=== PATIENT | female | born 1930 | race Caucasian/White ===

== ENCOUNTER 2016-11-12 10:33 | Outpatient (CLI) | payer MEDICARE, OTHER | END 2016-11-12 10:34 | disposition home or self-care (01) | DX: J84.10 Pulmonary fibrosis, unspecified (principal) ==

== ENCOUNTER 2016-12-04 11:16 | Outpatient (CLI) | payer MEDICARE, OTHER | END 2016-12-04 11:17 | disposition critical access hospital (66) | DX: R40.0 Somnolence (principal) | CPT/HCPCS: A0425; A0427 ==

== ENCOUNTER 2016-12-04 11:40 | Inpatient (IN) | payer MEDICARE, OTHER ==
[2016-12-04] MEDS ORDERED: SODIUM CHLORIDE 0.9% 500 ML IV ONE (12:47)
[2016-12-04] MEDS ORDERED: AZITHROMYCIN INJ 500 MG in SODIUM CHLORIDE 0.9% 250 ML IV STA (13:57)
[2016-12-04] MEDS ORDERED: cefTRIAXone 1 GM in SODIUM CHLORIDE 0.9% MINIBAG 100 ML IV STA (13:57)
[2016-12-04] MEDS ORDERED: cefTRIAXone 1 GM VIAL ONE (14:08)
[2016-12-04] MEDS ORDERED: IPRATROPIUM/ALBUTEROL 3 ML NEB INH STA (14:32)
[2016-12-04] MEDS ORDERED: IPRATROPIUM/ALBUTEROL 3 ML NEB INH ONE (14:50)
[2016-12-04] MEDS ORDERED: ONDANSETRON 4 MG/2 ML VIAL IVP PRN (15:14)
[2016-12-04] MEDS ORDERED: SODIUM CHLORIDE FLUSH 0.9% 10 ML SYRINGE IVP PRN (15:14)
[2016-12-04] MEDS ORDERED: FUROSEMIDE 40 MG/4 ML VIAL IVP ONE (16:45)
[2016-12-04] MEDS ORDERED: POTASSIUM CHLORIDE 20 MEQ TABLET PO ONE (17:00)
[2016-12-04] MEDS: SODIUM CHLORIDE FLUSH 0.9% 10 ML SYRINGE IVP SCH (22:20)
[2016-12-05] MEDS: SODIUM CHLORIDE FLUSH 0.9% 10 ML SYRINGE IVP SCH ×3 (06:46→21:16)
[2016-12-05] MEDS: POLYETHYLENE GLYCOL 3350 17 GM PACKET PO SCH (09:28)
[2016-12-05] MEDS: ENOXAPARIN 40 MG/0.4 ML SYRINGE SUBQ SCH (09:32)
[2016-12-05] MEDS: QUEtiapine 25 MG TABLET PO SCH (15:48)
[2016-12-05] MEDS: DOCUSATE SODIUM 250 MG CAPSULE PO SCH (17:51)
[2016-12-05] MEDS: AZITHROMYCIN 250 MG TABLET PO SCH (17:51)
[2016-12-05] MEDS: SENNA 8.6 MG TABLET PO SCH (21:16)
[2016-12-05] MEDS ORDERED: QUEtiapine 25 MG TABLET PO SCH (22:00)
[2016-12-06] MEDS: ACETAMINOPHEN 325 MG TABLET PO PRN ×2 (00:14→06:23)
[2016-12-06] MEDS: SODIUM CHLORIDE FLUSH 0.9% 10 ML SYRINGE IVP SCH (06:08)
[2016-12-06] MEDS: AZITHROMYCIN 250 MG TABLET PO SCH (10:01)
[2016-12-06] MEDS: DOCUSATE SODIUM 250 MG CAPSULE PO SCH (10:02)
[2016-12-06] MEDS: QUEtiapine 25 MG TABLET PO SCH (10:04)
[2016-12-06] MEDS: SENNA 8.6 MG TABLET PO SCH (10:04)
[2016-12-06] MEDS: POLYETHYLENE GLYCOL 3350 17 GM PACKET PO SCH (10:07)
[2016-12-06] MEDS: ENOXAPARIN 40 MG/0.4 ML SYRINGE SUBQ SCH (10:10)
== END 2016-12-06 15:34 | disposition home or self-care (01) | DRG 884 ==
DX: R40.4 Transient alteration of awareness (principal); R40.0 Somnolence; J18.1 Lobar pneumonia, unspecified organism; R60.0 Localized edema; J18.9 Pneumonia, unspecified organism; E78.00 Pure hypercholesterolemia, unspecified; R32 Unspecified urinary incontinence; J84.9 Interstitial pulmonary disease, unspecified; F11.20 Opioid dependence, uncomplicated; R06.02 Shortness of breath; T43.595A Adverse effect of other antipsychotics and neuroleptics, initial encounter; M40.00 Postural kyphosis, site unspecified; G89.29 Other chronic pain; M54.9 Dorsalgia, unspecified; E03.9 Hypothyroidism, unspecified; K21.9 Gastro-esophageal reflux disease without esophagitis; E78.5 Hyperlipidemia, unspecified; M81.0 Age-related osteoporosis without current pathological fracture; F41.9 Anxiety disorder, unspecified; Z79.899 Other long term (current) drug therapy; Z87.891 Personal history of nicotine dependence; Y92.009 Unspecified place in unspecified non-institutional (private) residence as the place of occurrence of the external cause

== ENCOUNTER 2016-12-30 11:31 | Inpatient (IN) | payer MEDICARE, OTHER ==
[2016-12-30] MEDS ORDERED: ACETAMINOPHEN 325 MG TABLET PO PRN (14:51)
[2016-12-30] MEDS ORDERED: oxyCODONE 5 MG TABLET PO PRN (14:51)
[2016-12-30] MEDS ORDERED: BENZONATATE 100 MG CAPSULE PO PRN (14:55)
[2016-12-30] MEDS ORDERED: SODIUM CHLORIDE 0.9% 1,000 ML IV SCH (16:30)
[2016-12-30] MEDS: PIPERACILLIN/TAZOBACTAM 3.375 GM in SODIUM CHLORIDE 0.9% MINIBAG 100 ML IV SCH (16:38)
[2016-12-30] MEDS: SODIUM CHLORIDE FLUSH 0.9% 10 ML SYRINGE IVP SCH (16:39)
[2016-12-30] MEDS: QUEtiapine 25 MG TABLET PO SCH (20:23)
[2016-12-30] MEDS: MIRTAZAPINE 15 MG TABLET PO SCH (20:24)
[2016-12-31] MEDS: PIPERACILLIN/TAZOBACTAM 3.375 GM in SODIUM CHLORIDE 0.9% MINIBAG 100 ML IV SCH ×4 (00:06→18:23)
[2016-12-31] MEDS: LEVOTHYROXINE 88 MCG TABLET PO SCH (06:13)
[2016-12-31] MEDS: SODIUM CHLORIDE FLUSH 0.9% 10 ML SYRINGE IVP SCH ×3 (06:13→20:52)
[2016-12-31] MEDS: MAGNESIUM OXIDE 400 MG TABLET PO SCH (08:32)
[2016-12-31] MEDS: POTASSIUM CHLORIDE 10 MEQ CAPSULE PO SCH (08:32)
[2016-12-31] MEDS: BUPRENORPHINE HCL PO SCH ×2 (08:33→20:52)
[2016-12-31] MEDS: NALOXONE HCL PO SCH ×2 (08:33→20:52)
[2016-12-31] MEDS: POLYETHYLENE GLYCOL 3350 17 GM PACKET PO SCH (09:05)
[2016-12-31] MEDS: QUEtiapine 25 MG TABLET PO SCH ×3 (10:24→14:29)
[2016-12-31] MEDS: MIRTAZAPINE 15 MG TABLET PO SCH (20:52)
[2017-01-01] MEDS: PIPERACILLIN/TAZOBACTAM 3.375 GM in SODIUM CHLORIDE 0.9% MINIBAG 100 ML IV SCH ×4 (00:08→18:23)
[2017-01-01] MEDS: SODIUM CHLORIDE FLUSH 0.9% 10 ML SYRINGE IVP PRN ×5 (00:14→15:48)
[2017-01-01] MEDS: LEVOTHYROXINE 88 MCG TABLET PO SCH (05:59)
[2017-01-01] MEDS: SODIUM CHLORIDE FLUSH 0.9% 10 ML SYRINGE IVP SCH ×3 (05:59→22:32)
[2017-01-01] MEDS ORDERED: MAGNESIUM HYDROXIDE 2,400 MG/30 ML UDC PO ONE (07:38)
[2017-01-01] MEDS: DOCUSATE SODIUM 250 MG CAPSULE PO SCH (08:20)
[2017-01-01] MEDS: POLYETHYLENE GLYCOL 3350 17 GM PACKET PO SCH (08:20)
[2017-01-01] MEDS: MAGNESIUM OXIDE 400 MG TABLET PO SCH (08:21)
[2017-01-01] MEDS: SENNA 8.6 MG TABLET PO SCH (08:21)
[2017-01-01] MEDS: BUPRENORPHINE HCL PO SCH (09:10)
[2017-01-01] MEDS: NALOXONE HCL PO SCH (09:10)
[2017-01-01] MEDS: POTASSIUM CHLORIDE 10 MEQ CAPSULE PO SCH (09:13)
[2017-01-01] MEDS: QUEtiapine 25 MG TABLET PO SCH ×3 (09:13→20:33)
[2017-01-01] MEDS ORDERED: BISACODYL 10 MG SUPP PR ONE (11:00)
[2017-01-01] MEDS ORDERED: MIN OIL/DIMETHICON/COCONUT OIL 92 GM TUBE TOP ONE (13:15)
[2017-01-01] MEDS ORDERED: SODIUM CHLORIDE 0.9% 250 ML IV ONE (15:49)
[2017-01-01] MEDS: MIRTAZAPINE 15 MG TABLET PO SCH (20:33)
[2017-01-01] MEDS: BUPRENORPHINE HCL TOP SCH (20:33)
[2017-01-01] MEDS: NALOXONE HCL TOP SCH (20:33)
[2017-01-02] MEDS: PIPERACILLIN/TAZOBACTAM 3.375 GM in SODIUM CHLORIDE 0.9% MINIBAG 100 ML IV SCH ×2 (00:15→06:19)
[2017-01-02] MEDS: SODIUM CHLORIDE FLUSH 0.9% 10 ML SYRINGE IVP PRN (00:18)
[2017-01-02] MEDS: LEVOTHYROXINE 88 MCG TABLET PO SCH (06:19)
[2017-01-02] MEDS: SODIUM CHLORIDE FLUSH 0.9% 10 ML SYRINGE IVP SCH (06:19)
[2017-01-02] MEDS: SENNA 8.6 MG TABLET PO SCH (08:32)
[2017-01-02] MEDS: POLYETHYLENE GLYCOL 3350 17 GM PACKET PO SCH (08:32)
[2017-01-02] MEDS: DOCUSATE SODIUM 250 MG CAPSULE PO SCH (08:32)
[2017-01-02] MEDS: BUPRENORPHINE HCL TOP SCH (08:38)
[2017-01-02] MEDS: MAGNESIUM OXIDE 400 MG TABLET PO SCH (08:38)
[2017-01-02] MEDS: NALOXONE HCL TOP SCH (08:38)
[2017-01-02] MEDS: POTASSIUM CHLORIDE 10 MEQ CAPSULE PO SCH (08:39)
[2017-01-02] MEDS: QUEtiapine 25 MG TABLET PO SCH (11:06)
== END 2017-01-02 12:54 | disposition home or self-care (01) | DRG 196 ==
DX: J84.9 Interstitial pulmonary disease, unspecified (principal); J18.1 Lobar pneumonia, unspecified organism; I50.9 Heart failure, unspecified; E78.00 Pure hypercholesterolemia, unspecified; F11.20 Opioid dependence, uncomplicated; R32 Unspecified urinary incontinence; J47.9 Bronchiectasis, uncomplicated; G89.29 Other chronic pain; R41.3 Other amnesia; Z87.01 Personal history of pneumonia (recurrent); M54.9 Dorsalgia, unspecified; K21.9 Gastro-esophageal reflux disease without esophagitis; K44.9 Diaphragmatic hernia without obstruction or gangrene; M40.209 Unspecified kyphosis, site unspecified; E78.5 Hyperlipidemia, unspecified; E03.9 Hypothyroidism, unspecified; M81.0 Age-related osteoporosis without current pathological fracture; K08.9 Disorder of teeth and supporting structures, unspecified; K05.10 Chronic gingivitis, plaque induced; Z79.891 Long term (current) use of opiate analgesic; Z79.51 Long term (current) use of inhaled steroids; Z79.899 Other long term (current) drug therapy; Z87.891 Personal history of nicotine dependence

== ENCOUNTER 2018-02-17 08:39 | Outpatient (CLI) | payer MEDICARE, OTHER | END 2018-02-17 08:40 | disposition critical access hospital (66) | LOC: EMS 08:39 | PROVIDERS: ATTEND Surgery | DX: R53.1 Weakness (principal); R06.00 Dyspnea, unspecified; R05 Cough | CPT/HCPCS: A0425; A0427 ==

== ENCOUNTER 2018-02-17 09:06 | Inpatient (IN) | payer MEDICARE, OTHER ==
[2018-02-17 09:52] LABS: BASOPHILS % (AUTO) 0.3 %; EOSINOPHILS # (AUTO) 0.1 10^3/uL (0.0-0.7); EOSINOPHILS % (AUTO) 1.4 %; HGB - HEMOGLOBIN 10.9 g/dL (12.0-16.0); LYMPHOCYTES % (AUTO) 9.6 %; MEAN CORPUSCULAR HEMOGLOBIN 29.9 pg (27.0-31.0); MEAN CORPUSCULAR HGB CONC 33.4 g/dL (32.0-36.0); MEAN CORPUSCULAR VOLUME 89.6 fL (81.0-99.0); MEAN PLATELET VOLUME 7.1 fL (7.9-10.8); MONOCYTES # (AUTO) 0.7 10^3/uL (0.0-1.0); MONOCYTES % (AUTO) 6.6 %; NEUTROPHILS # (AUTO) 8.5 10^3/uL (1.5-6.6); NEUTROPHILS % (AUTO) 82.1 %; PLT - PLATELET COUNT 224 10^3/uL (130-450); RED BLOOD COUNT 3.65 10^6/uL (4.20-5.40); RED CELL DISTRIBUTION WIDTH 12.9 % (12.0-15.0); WHITE BLOOD COUNT 10.4 x10^3/uL (4.8-10.8)
[2018-02-17 09:59] LABS: CALCIUM 8.8 mg/dL (8.5-10.3); CREATININE 1.1 mg/dL (0.4-1.0)
--- NOTE | 2018-02-17 10:24 | ED Physician Documentation ---
History of Present Illness - Stated complaint Stated Complaint: WEAKNESS - Chief complaint Chief Complaint: Resp - Additonal information Additional information: hx from pt 88 female from [facility] sent for SOA and hypoxia denies fever denies pain has leg swelling Review of Systems Constitutional: denies: Fever, Chills Cardiac: denies: Chest pain / pressure, Palpitations Respiratory: reports: Dyspnea, Cough GI: denies: Abdominal Pain, Nausea, Vomiting Musculoskeletal: reports: Extremity swelling Endocrine: denies: Easy bruising / bleeding Immunocompromised: denies: Immunocompromised PD PAST MEDICAL HISTORY - Past Medical History Cardiovascular: Congestive heart failure, High cholesterol Respiratory: Shortness of breath Endocrine/Autoimmune: HyPOthyroidism GI: GERD : Incontinence Psych: Anxiety, Other Musculoskeletal: Chronic back pain - Past Surgical History Past Surgical History: No - Present Medications Home Medications: Ambulatory Orders Medication Instructions Recorded Confirmed Lovastatin 20 mg PO QPM 02/23/13 02/17/18 Vitamin B Complex [B50 Balanced] 1 cap PO DAILYWM 02/23/13 02/17/18 Buprenorphine HCl/Naloxone HCl 1 film SL Q12H 12/04/16 02/17/18 [Suboxone 8 mg-2 mg Sl Film] Furosemide [Lasix] 40 mg PO 0800,1200 12/04/16 02/17/18 Mirtazapine 15 mg PO QPM 12/04/16 02/17/18 Potassium Chloride 10 meq PO DAILYWM 12/05/16 02/17/18 Cholecalciferol (Vitamin D3) 2,000 units PO DAILY 12/30/16 02/17/18 [Vitamin D3] Furosemide [Lasix] 20 mg PO 1600 12/30/16 02/17/18 QUEtiapine [SEROquel] 12.5 mg PO QPM 12/30/16 02/17/18 Quetiapine Fumarate 25 mg PO 1000,1400 12/30/16 02/17/18 Cyanocobalamin (Vitamin B-12) 1,000 mcg PO DAILY 02/17/18 02/17/18 [Vitamin B-12] Docusate Sodium 100 mg PO TID 02/17/18 02/17/18 Melatonin 5 mg PO QPM 02/17/18 02/17/18 Multivitamin [Theragran] 1 tab PO DAILY 02/17/18 02/17/18 - Allergies Allergies/Adverse Reactions: Allergies Allergy/AdvReac Type Severity Reaction Status Date / Time amoxicillin [Amoxicillin] AdvReac Intermediate Diarrhea Verified 12/30/16 17:12 - Social History Does the pt smoke?: No Smoking Status: Never smoker Does the pt drink ETOH?: No Does the pt have substance abuse?: No - Immunizations Immunizations are current?: No Immunizations: TDAP >10years/unknown - POLST Patient has POLST: No PD ED PE NORMAL - Vitals Vital signs reviewed: Yes - Neck Neck: Supple, no meningeal sign - Cardiac Cardiac: RRR - Respiratory Respiratory: Other (rales antelmo) - Abdomen Abdomen: Soft, Non tender - Extremities Extremities: Other (marked antelmo edema) - Neuro Neuro: Alert and oriented X 3 Results - Vitals Vitals: Vital Signs - 24 hr 02/17/18 02/17/18 02/17/18 09:13 10:47 12:38 Temperature 36.6 C Heart Rate 86 53 L 53 L Respiratory 18 16 19 Rate Blood Pressure 122/90 H 137/53 H 125/51 L O2 Saturation 95 100 94 02/17/18 14:48 Temperature 36.4 C L Heart Rate 70 Respiratory 16 Rate Blood Pressure 125/48 L O2 Saturation 97 Oxygen O2 Source Room air Oxygen Flow Rate 2 - EKG (time done) 0944 Rate: Rate (enter#) Rhythm: NSR [place]: LAD Intervals: Normal ND. No: Prolonged QT Ischemia: Non specific changes (inv T III AVF and flat precordial leads) - Labs Labs: Laboratory Tests 02/17/18 02/17/18 02/17/18 09:42 09:42 09:42 WBC 10.4 RBC 3.65 L Hgb 10.9 L Hct 32.7 L MCV 89.6 MCH 29.9 MCHC 33.4 RDW 12.9 Plt Count 224 MPV 7.1 L Neut # 8.5 H Lymph # 1.0 L [place] # 0.7 Eos # 0.1 Baso # 0.0 Absolute Nucleated RBC 0.00 Nucleated RBC % 0.0 Sodium 138 Potassium 3.3 L Chloride 94 L Carbon Dioxide 35 H Anion Gap 9.0 BUN 10 Creatinine 1.1 H Estimated GFR (MDRD) 47 L Glucose 124 H Lactic Acid Calcium 8.8 Troponin I < 0.04 B-Natriuretic Peptide 02/17/18 02/17/18 09:42 12:29 WBC RBC Hgb Hct MCV MCH MCHC RDW Plt Count MPV Neut # Lymph # [place] # Eos # Baso # Absolute Nucleated RBC Nucleated RBC % Sodium Potassium Chloride Carbon Dioxide Anion Gap BUN Creatinine Estimated GFR (MDRD) Glucose Lactic Acid 1.5 Calcium Troponin I B-Natriuretic Peptide 201 H - Rads (name of study) CXR Radiology: See rad report (low lung volumes R basilar airspace dz atelectasis vs pna) PD MEDICAL DECISION MAKING - ED course ED course: hx CHF and edematous but neg BNP and no sig CHF on CXR does have R base infiltrate given all to amox and other home meds and coming from SNF, chose levaquin - will still need to have QT monitored sats low - lives at home - usually uses O2 NC BP low too (SBP 85 when i was in room with family) anemia not new will admit paged hospitalist at 1315 spoke to hospitalist at 1500 pt and family updated Departure - Departure Disposition: 66 [facility] DC/Xfer Clinical Impression: Hypoxia Pneumonia Qualifiers: Pneumonia type: due to unspecified organism Laterality: right Lung location: lower lobe of lung Qualified Code(s): J18.1 - Lobar pneumonia, unspecified organism Condition: Fair Discharge Date/Time: 02/17/18 16:00
--- NOTE | 2018-02-17 10:38 | XRAY Report ---
EXAM: CHEST RADIOGRAPHY EXAM DATE: 02/17/2018 10:12 AM. CLINICAL HISTORY: Cough. Short of breath. COMPARISON: 01/07/17. TECHNIQUE: 2 views. FINDINGS: Lungs/Pleura: The lungs are hypoventilated. There is again elevation of the right hemidiaphragm with some streaky opacities seen at the bases favoring atelectasis. No new pulmonary opacity is suggested. There is no pneumothorax or effusion. Mediastinum: Heart and mediastinal contours are unremarkable. Other: None. IMPRESSION: Low lung volumes with elevated right hemidiaphragm and right basilar airspace disease fav oring chronic atelectasis, unchanged. No new findings otherwise. [facility] Referring Provider Line: [phone] SITE ID: [id number]
--- NOTE | 2018-02-17 10:38 | XRAY Preliminary Report ---
Exam: XR CHEST 2 VIEW X-RAY IMPRESSION: Low lung volumes with elevated right hemidiaphragm and right basilar airspace disease fav oring chronic atelectasis, unchanged. No new findings otherwise. [facility] SITE ID: [id number]
[2018-02-17] MEDS ORDERED: levoFLOXacin 500 MG/100 ML 500 MG/100 ML BAG IV STA (10:51)
[2018-02-17] MEDS ORDERED: SODIUM CHLORIDE FLUSH 0.9% 10 ML SYRINGE IVP PRN (15:16)
[2018-02-17] MEDS ORDERED: SODIUM CHLORIDE 0.9% 1,000 ML IV SCH ×2 (16:00→16:30)
[2018-02-17] MEDS ORDERED: ZINC OXIDE 20% OINT 28.35 GM TUBE TOP PRN (16:42)
--- NOTE | 2018-02-17 17:05 | HISTORY & PHYSICAL EXAMINATION ---
Chief Complaint - Chief Complaint Chief Complaint: generalized weakness and difficult standing up History of Present Illness - Admitted From Admitted From:: ER - History Obtained From History obtained from: pt - History of Present Illness HPI Comment/Other: Ms. Webster is a 88-yrs-old female with a PMH significant for CHF, high cholesterol, shortness of breath, GERD, incontinence, anxiety, chronic back pain , who present ER for complaints of difficult to stand up and generalized weakness. Pt report she had cough with sputum for over a week. She state she swallowed all sputum, so she did not know the sputum color. She denies fever, chill, diaphoresis, or night sweating. Pt report today morning she just can not stand up. she report she usually stand up with her caregiver's help to walk with a walker but she just can not do it today. She feel very weakness today. She denies chest pain.CXR reveals chronic without significant acute finding. Dr. Rapp report pt does have right base infiltrate. Pt is afebrile. Pt report she used O2 tank in home, however, pt's O2 sats is 97% on room air. Lab test reveals slight low potassium and slight elevated BNP. History - Past Medical History Cardiovascular: reports: Congestive heart failure, High cholesterol Respiratory: reports: Shortness of breath Endocrine/Autoimmune: reports: HyPOthyroidism GI: reports: GERD : reports: Incontinence Psych: reports: Anxiety, Other Musculoskeletal: reports: Chronic back pain MRSA Hx?: No - Past Surgical History HEENT: reports: Tonsil/Adenoidectomy - POLST Patient has POLST: No Meds/Allgy - Home Medications Home Medications: Ambulatory Orders Medication Instructions Recorded Confirmed Lovastatin 20 mg PO QPM 02/23/13 02/17/18 Vitamin B Complex [B50 Balanced] 1 cap PO DAILYWM 02/23/13 02/17/18 Buprenorphine HCl/Naloxone HCl 1 film SL Q12H 12/04/16 02/17/18 [Suboxone 8 mg-2 mg Sl Film] Furosemide [Lasix] 40 mg PO 0800,1200 12/04/16 02/17/18 Mirtazapine 15 mg PO QPM 12/04/16 02/17/18 Potassium Chloride 10 meq PO DAILYWM 12/05/16 02/17/18 Cholecalciferol (Vitamin D3) 2,000 units PO DAILY 12/30/16 02/17/18 [Vitamin D3] Furosemide [Lasix] 20 mg PO 1600 12/30/16 02/17/18 QUEtiapine [SEROquel] 12.5 mg PO QPM 12/30/16 02/17/18 Quetiapine Fumarate 25 mg PO 1000,1400 12/30/16 02/17/18 Cyanocobalamin (Vitamin B-12) 1,000 mcg PO DAILY 02/17/18 02/17/18 [Vitamin B-12] Docusate Sodium 100 mg PO TID 02/17/18 02/17/18 Melatonin 5 mg PO QPM 02/17/18 02/17/18 Multivitamin [Theragran] 1 tab PO DAILY 02/17/18 02/17/18 - Allergies Allergies/Adverse Reactions: Allergies Allergy/AdvReac Type Severity Reaction Status Date / Time amoxicillin [Amoxicillin] AdvReac Intermediate Diarrhea Verified 12/30/16 17:12 Review of Systems - Constitutional Constitutional: reports: Fatigue, Weakness. denies: Fever, Chills, Malaise, Poor appetite, Diaphoresis, Night sweats - Eyes Eyes: denies: Pain, Irritation, Amaurosis, Blurred vision, Spots in vision, Field loss, Vision loss, Dipolpia - Ears, Nose & Throat Ears, Nose & Throat: denies: Ear pain, Hearing loss, Hearing aids, Tinnitus, Vertigo, Nasal pain, Nasal discharge, Nosebleeds, Nasal congestion, Sore throat , Mouth lesions, Bleeding gums, Dental decay - Cardiovascular Cariovascular: denies: Irregular heart rate, Palpitations, Chest pain, Edema, Lightheadedness, Syncope, Exertional dyspnea, Decr. exercise tolerance - Respiratory Respiratory: reports: Cough, Sputum production, SOB with exertion. denies: Wheezing, Snoring, Hemoptysis, Orthopnea, SOB at rest, Apnea, Stridor, Pleuritic pain - Gastrointestinal Gastrointestinal: denies: Abdominal pain, Abdominal distention, Constipation, Diarrhea, Change in bowel habits, Rectal bleeding, Black stools, Bloody stools, Nausea, Vomiting, Higinio blood emesis, Coffee grounds emesis, Reflux/heartburn, Bloating, Poor appetite - Genitourinary Genitourinary: denies: Dysuria, Frequency, Urgency, Hematuria, Incontinence, Flank pain, Nocturia, Urethral discharge - Musculoskeletal Musculoskeletal: denies: Muscle pain, Back pain, Muscle aches, Stiffness, Limited range of motion, Muscle weakness, Gout, Joint pain - Integumentary Integumentary: denies: Rash, Pruritis, Lesions, Dryness, Lumps, Acne, Pigment changes, Nail changes - Neurological Neurological: reports: General weakness. denies: Focal weakness, Headache, Dizziness, Numbness, Memory problems, Pre-existing deficit, Abnormal gait, Seizures, Incoordination, Slurred speech - Psychiatric Psychiatric: denies: Depression, Anxiety, Suicidal, Delusions, Hallucinations, Homicidal - Endocrine Endocrine: denies: Polyuria, Polydypsia, Polyphagia, Intolerance to cold - Hematologic/Lymphatic Hematologic/Lymphatic: denies: Anemia, Bruising, Petechiae, Blood clots, Lymphadenopathy, Bleeding tendencies Exam - Vital Signs Reviewed Vital Signs: Yes Vital Signs: Vital Signs x48h Temp Pulse Resp BP Pulse Ox 02/17/18 16:00 37.2 C 66 18 128/48 L 95 - Physical Exam General Appearance: positive: No acute distress, Alert. negative: Lethargic Eyes Bilateral: positive: Normal inspection, PERRL, No lid inflammation, Conjunctivae nml ENT: positive: ENT inspection nml, Pharynx nml, No signs of dehydration. negative: Purulent nasal drainage, Pharyngeal erythema, Oral lesions Neck: positive: Nml inspection, Thyroid nml, No JVD, Trachea midline. negative : Thyromegaly, Lymphadenopathy (R), Lymphadenopathy (L), Stiff neck, Swelling/ bruising, Tracheal deviation Respiratory: positive: Chest non-tender, No respiratory distress, Other (mild crackles on right). negative: Wheezes, Rales Cardiovascular: positive: Regular rate & rhythm, No murmur. negative: Irregularly irregular, Extrasystoles, Tachycardia, Bradycardia, JVD present, Systolic murmur, Diastolic murmur Peripheral Pulses: positive: 2+ Abdomen: positive: Non-tender, No organomegaly, Nml bowel sounds, No distention. negative: Tenderness, Guarding, Rebound Back: positive: Nml inspection. negative: CVA tenderness (R), CVA tenderness (L ) Skin: positive: Color nml, No rash, Warm, Dry. negative: Cyanosis, Diaphoresis , Pallor, Skin rash Extremities: positive: Non-tender, Full ROM, Nml appearance. negative: Calf tenderness, Joint swelling, Fabian's sign/cords Neurologic/Psychiatric: positive: Oriented x3, Motor nml, Sensation nml, Mood/ affect nml. negative: Sensory loss, Facial droop, Slurred/abnml speech, Depressed mood/affect Conclusion/Plan - Problem List (1) Cough in adult Conclusion/Plan: pt report she had cough and sick for over one week, WBC 10.4, ER provider view pt had R base infiltrate Azith and Rocephin for pt blood culture, follow up Mucinex (2) Leg edema Conclusion/Plan: chronic condition. There is no tenderness, erythema, or pain. It seems from pt' s heart condition. Pt has normal renal function. order ECHO continue home Lasix daily lab, vital monitor (3) Generalized weakness Conclusion/Plan: pt state she can not stand up and feels very weakness PT/OT evaluation and treatment (4) Congenital heart failure Conclusion/Plan: order ECHO, follow up continue Lasix cardiac diet low sodium daily weight I/O (5) Hypokalemia Conclusion/Plan: replacement of Potassium daily lab monitor (6) Anemia Conclusion/Plan: HGB 10.9, order anemia study (7) DVT prophylaxis Conclusion/Plan: pt refuse SCD, order Lovenox instead (8) Full code status Conclusion/Plan: pt request full code status - Lab Results Fish Bones: 02/18/18 05:30 02/18/18 05:30 Core Measures - Anticipated LOS I expect patient to be DC'd or transferred within 96 hours.: Yes - DVT/VTE - Prophylaxis VTE/DVT Device ordered at admit?: No Not Ordered - Medical Reason: Not tolerated VTE/DVT Prophylaxis med ordered at admit?: Yes
[2018-02-17] MEDS: ENOXAPARIN 40 MG/0.4 ML SYRINGE SUBQ SCH (18:16)
[2018-02-17] MEDS: SACCHAROMYCES BOULARDII 250 MG CAPSULE PO SCH (18:16)
[2018-02-17] MEDS: FUROSEMIDE 20 MG TABLET PO SCH (18:16)
[2018-02-17] MEDS: SODIUM CHLORIDE FLUSH 0.9% 10 ML SYRINGE IVP SCH ×2 (18:16→23:44)
[2018-02-17] MEDS ORDERED: POTASSIUM CHLORIDE 20 MEQ TABLET PO SCH (18:21)
[2018-02-17] MEDS: guaiFENesin 600 MG TABLET PO SCH ×2 (18:22→21:56)
[2018-02-17 19:32] LABS: MEAN RETIC VALUE 97.1; RED BLOOD COUNT 3.74 10^6/uL (4.20-5.40)
[2018-02-17 19:49] LABS: % IRON SATURATION 9 % (20-50); IRON 19 ug/dL (28-170); TOTAL IRON BINDING CAPACITY 202 ug/dL (250-450); TRANSFERRIN 144 mg/dL (192-382)
[2018-02-17 19:53] LABS: FERRITIN 259.7 ng/mL (11.0-306.8)
[2018-02-17] MEDS: MIRTAZAPINE 15 MG TABLET PO SCH (21:53)
[2018-02-17] MEDS: ATORVASTATIN 10 MG TABLET PO SCH (21:53)
[2018-02-17] MEDS: DOCUSATE SODIUM 100 MG CAPSULE PO SCH (21:53)
[2018-02-17] MEDS: QUEtiapine 25 MG TABLET PO SCH (21:53)
[2018-02-18 05:46] LABS: BASOPHILS % (AUTO) 0.3 %; EOSINOPHILS # (AUTO) 0.1 10^3/uL (0.0-0.7); EOSINOPHILS % (AUTO) 0.8 %; HGB - HEMOGLOBIN 10.4 g/dL (12.0-16.0); LYMPHOCYTES # (AUTO) 1.3 10^3/uL (1.5-3.5); LYMPHOCYTES % (AUTO) 13.4 %; MEAN CORPUSCULAR HEMOGLOBIN 29.2 pg (27.0-31.0); MEAN CORPUSCULAR VOLUME 88.7 fL (81.0-99.0); MEAN PLATELET VOLUME 6.9 fL (7.9-10.8); MONOCYTES # (AUTO) 0.8 10^3/uL (0.0-1.0); MONOCYTES % (AUTO) 8.3 %; NEUTROPHILS # (AUTO) 7.7 10^3/uL (1.5-6.6); NEUTROPHILS % (AUTO) 77.2 %; PLT - PLATELET COUNT 207 10^3/uL (130-450); RED BLOOD COUNT 3.56 10^6/uL (4.20-5.40); RED CELL DISTRIBUTION WIDTH 12.6 % (12.0-15.0); WHITE BLOOD COUNT 9.9 x10^3/uL (4.8-10.8)
[2018-02-18] MEDS: DOCUSATE SODIUM 100 MG CAPSULE PO SCH ×3 (05:49→20:28)
[2018-02-18 05:53] LABS: CALCIUM 8.4 mg/dL (8.5-10.3)
[2018-02-18] MEDS ORDERED: ONDANSETRON 4 MG/2 ML VIAL IVP PRN (07:04)
[2018-02-18] MEDS: MELATONIN 5 MG PO SCH ×2 (07:27→20:29)
[2018-02-18] MEDS: POTASSIUM CHLORIDE 10 MEQ CAPSULE PO SCH (07:37)
[2018-02-18] MEDS: SACCHAROMYCES BOULARDII 250 MG CAPSULE PO SCH ×2 (07:38→16:20)
[2018-02-18] MEDS: FUROSEMIDE 20 MG TABLET PO SCH ×3 (07:38→16:20)
[2018-02-18] MEDS ORDERED: AZITHROMYCIN INJ 500 MG in SODIUM CHLORIDE 0.9% 250 ML IV SCH (09:00)
[2018-02-18] MEDS: CHOLECALCIFEROL 1,000 UNIT TABLET PO SCH (09:06)
[2018-02-18] MEDS: ENOXAPARIN 40 MG/0.4 ML SYRINGE SUBQ SCH (09:06)
[2018-02-18] MEDS: guaiFENesin 600 MG TABLET PO SCH ×2 (09:06→20:28)
[2018-02-18] MEDS: MULTIVITAMIN TABLET PO SCH (09:06)
[2018-02-18] MEDS: CYANOCOBALAMIN 500 MCG TABLET PO SCH (09:06)
[2018-02-18] MEDS: POLYETHYLENE GLYCOL 3350 17 GM PACKET PO SCH (09:07)
[2018-02-18] MEDS: SODIUM CHLORIDE FLUSH 0.9% 10 ML SYRINGE IVP SCH ×2 (09:07→16:20)
[2018-02-18] MEDS: FERROUS SULFATE 325 MG TABLET PO SCH (09:14)
[2018-02-18] MEDS: cefTRIAXone 2 GM in SODIUM CHLORIDE 0.9% MINIBAG 100 ML IV SCH (10:39)
[2018-02-18] MEDS: QUEtiapine 25 MG TABLET PO SCH ×3 (10:39→20:28)
--- NOTE | 2018-02-18 14:51 | PROVIDER PROGRESS NOTE ---
Subjective - Prog Note Date Prog Note Date: 02/18/18 - Subjective Pt reports feeling: Improved Subjective: pt report she feel better than yesterday, expressed appreciation to me. Pt report her cough is better, breathing is better. She denies CP, fever, chill. Current Medications - Current Medications Current Medications: Active Medications Atorvastatin Calcium (Lipitor) 10 mg PO QPM [facility] Last Admin: 02/17/18 21:53 Dose: 10 mg Azithromycin (Zithromax) 500 mg PO DAILY [facility] Cholecalciferol (Vitamin D3) 2,000 unit PO DAILY [facility] Last Admin: 02/18/18 09:06 Dose: 2,000 unit Cyanocobalamin (Vitamin B-12) 1,000 mcg PO DAILY [facility] Last Admin: 02/18/18 09:06 Dose: 1,000 mcg Docusate Sodium (Colace 100mg Capsule) 100 mg PO TID [facility] Last Admin: 02/18/18 14:08 Dose: 100 mg Enoxaparin Sodium (Lovenox) 40 mg SUBQ DAILY [facility] Last Admin: 02/18/18 09:06 Dose: 40 mg Ferrous Sulfate (Feosol) 325 mg PO DAILYWM [facility] Last Admin: 02/18/18 09:14 Dose: 325 mg Furosemide (Lasix) 20 mg PO 1600 [facility] Last Admin: 02/17/18 18:16 Dose: 20 mg Furosemide (Lasix) 40 mg PO 0800,1200 [facility] Last Admin: 02/18/18 12:45 Dose: 40 mg Guaifenesin (Mucinex) 600 mg PO BID [facility] Last Admin: 02/18/18 09:06 Dose: 600 mg Ceftriaxone Sodium 2 gm/ (Sodium Chloride) 100 mls @ 200 mls/hr IV Q24H [facility] Last Infusion: 02/18/18 11:12 Dose: Infused Mirtazapine (Remeron) 15 mg PO QPM [facility] Last Admin: 02/17/18 21:53 Dose: 15 mg Multi-Ingredient Ointment (Zinc Oxide) 1 applic TOP PRN PRN PRN Reason: Skin Care Multivitamins (Theragran) 1 tab PO DAILY [facility] Last Admin: 02/18/18 09:06 Dose: 1 tab Ondansetron HCl (Zofran Inj) 4 mg IVP Q6HR PRN PRN Reason: Nausea / Vomiting Last Admin: 02/18/18 07:38 Dose: 4 mg (Buprenorphine Hcl/Naloxone Hcl [ Suboxone 8 Mg-2 Mg Sl Film]) 1 each SL Q12H ERNESTO (Melatonin [ (Melatonin] 5 Mg)) 1 each PO QPM [facility] Last Admin: 02/18/18 07:27 Dose: Not Given Polyethylene Glycol (Miralax) 17 gm PO DAILY [facility] Last Admin: 02/18/18 09:07 Dose: Not Given Potassium Chloride (Micro-K) 10 meq PO DAILYWM [facility] Last Admin: 02/18/18 07:37 Dose: 10 meq Quetiapine Fumarate (Seroquel) 12.5 mg PO QPM [facility] Last Admin: 02/17/18 21:53 Dose: 12.5 mg Quetiapine Fumarate (Seroquel) 25 mg PO 1000,1400 [facility] Last Admin: 02/18/18 14:08 Dose: 25 mg Saccharomyces Boulardii (Florastor) 250 mg PO BIDWM [facility] Last Admin: 02/18/18 07:38 Dose: 250 mg Sodium Chloride (Normal Saline Flush 0.9%) 10 ml IVP PRN PRN PRN Reason: NEEDED PER PROVIDER ORDERS Sodium Chloride (Normal Saline Flush 0.9%) 10 ml IVP 0100,0900,1700 [facility] Last Admin: 02/18/18 09:07 Dose: 10 ml Lovastatin 20 mg PO QPM 02/23/13 Vitamin B Complex [B50 Balanced] 1 cap PO DAILYWM 02/23/13 Buprenorphine HCl/Naloxone HCl [Suboxone 8 mg-2 mg Sl Film] 1 film SL Q12H 12/04 Furosemide [Lasix] 40 mg PO 0800,1200 12/04/16 Mirtazapine 15 mg PO QPM 12/04/16 Potassium Chloride 10 meq PO DAILYWM 12/05/16 Cholecalciferol (Vitamin D3) [Vitamin D3] 2,000 units PO DAILY 12/30/16 Furosemide [Lasix] 20 mg PO 1600 12/30/16 QUEtiapine [SEROquel] 12.5 mg PO QPM 12/30/16 Quetiapine Fumarate 25 mg PO 1000,1400 12/30/16 Cyanocobalamin (Vitamin B-12) [Vitamin B-12] 1,000 mcg PO DAILY 02/17/18 Docusate Sodium 100 mg PO TID 02/17/18 Melatonin 5 mg PO QPM 02/17/18 Multivitamin [Theragran] 1 tab PO DAILY 02/17/18 Objective - Vital Signs/Intake & Output Reviewed Vital Signs: Yes Vital Signs: Vital Signs x48h Temp Pulse Pulse Resp BP BP Pulse Ox 02/18/18 13:40 02/18/18 12:42 78 119/50 L 02/18/18 11:05 66 97/47 L 02/18/18 07:34 37.5 C 63 16 118/39 L 96 Pulse Ox 02/18/18 13:40 90 L 02/18/18 12:42 02/18/18 11:05 02/18/18 07:34 Intake & Output: Intake & Output 02/15/18 02/16/18 02/17/18 02/18/18 23:59 23:59 23:59 23:59 Intake Total 300 1160 Balance 300 1160 - Objective General Appearance: positive: No acute distress, Alert. negative: Lethargic Eyes Bilateral: positive: Normal inspection, PERRL, No lid inflammation, Conjunctivae nml ENT: positive: ENT inspection nml, Pharynx nml, No signs of dehydration. negative: Purulent nasal drainage, Pharyngeal erythema, Oral lesions Neck: positive: Nml inspection, Thyroid nml, No JVD, Trachea midline. negative : Thyromegaly, Lymphadenopathy (R), Lymphadenopathy (L), Stiff neck, Carotid bruit, Swelling/bruising, Tracheal deviation Respiratory: positive: Chest non-tender, No respiratory distress, Breath sounds nml. negative: Wheezes, Rales, Rhonchi Cardiovascular: positive: Regular rate & rhythm, No murmur, No gallop. negative : Irregularly irregular, Extrasystoles, Tachycardia, Bradycardia, Systolic murmur, Diastolic murmur Peripheral Pulses: 2+ Radial (R), 2+ Radial (L), 2+ Dorsalis pedis (R), 2+ Dorsalis pedis (L) Abdomen: positive: Non-tender, No organomegaly, Nml bowel sounds, No distention. negative: Tenderness, Guarding, Rebound Back: positive: Nml inspection. negative: CVA tenderness (R), CVA tenderness (L ) Skin: positive: Color nml, No rash, Warm, Dry. negative: Cyanosis, Diaphoresis , Pallor Extremities: positive: Non-tender, Full ROM, Nml appearance. negative: Calf tenderness, Joint swelling, Fabian's sign/cords Neurologic/Psychiatric: positive: Oriented x3, Sensation nml, Mood/affect nml. negative: Sensory loss, Facial droop, Slurred/abnml speech, Depressed mood/ affect - Lab Results Fish Bones: 02/18/18 05:30 02/18/18 05:30 Other Labs: Lab Results x24hrs 02/18/18 02/18/18 02/18/18 Range/Units 05:30 05:30 05:30 WBC 9.9 (4.8-10.8) x10^3/uL RBC 3.56 L (4.20-5.40) 10^6/uL Hgb 10.4 L (12.0-16.0) g/dL Hct 31.6 L (37.0-47.0) % MCV 88.7 (81.0-99.0) fL MCH 29.2 (27.0-31.0) pg MCHC 33.0 (32.0-36.0) g/dL RDW 12.6 (12.0-15.0) % Plt Count 207 (130-450) 10^3/uL MPV 6.9 L (7.9-10.8) fL Reticulocyte % (Auto) (0.5-2.3) % Neut # 7.7 H (1.5-6.6) 10^3/uL Lymph # 1.3 L (1.5-3.5) 10^3/uL [place] # 0.8 (0.0-1.0) 10^3/uL Eos # 0.1 (0.0-0.7) 10^3/uL Baso # 0.0 (0.0-0.1) 10^3/uL Absolute Nucleated RBC 0.00 x10^3/uL Nucleated RBC % 0.0 /100WBC Absolute Retic (0.020-0.110) 10^6/uL Sodium 138 (135-145) mmol/L Potassium 3.8 (3.5-5.0) mmol/L Chloride 96 L (101-111) mmol/L Carbon Dioxide 36 H (21-32) mmol/L Anion Gap 6.0 (6-13) BUN 14 (6-20) mg/dL Creatinine 1.0 (0.4-1.0) mg/dL Estimated GFR (MDRD) 52 L (>89) Glucose 123 H (70-100) mg/dL Calcium 8.4 L (8.5-10.3) mg/dL Lactate Dehydrogenase (91-225) IU/L TSH 6.94 H (0.34-5.60) uIU/mL 02/17/18 02/17/18 Range/Units 19:19 19:19 WBC (4.8-10.8) x10^3/uL RBC 3.74 L (4.20-5.40) 10^6/uL Hgb (12.0-16.0) g/dL Hct (37.0-47.0) % MCV (81.0-99.0) fL MCH (27.0-31.0) pg MCHC (32.0-36.0) g/dL RDW (12.0-15.0) % Plt Count (130-450) 10^3/uL MPV (7.9-10.8) fL Reticulocyte % (Auto) 1.18 (0.5-2.3) % Neut # (1.5-6.6) 10^3/uL Lymph # (1.5-3.5) 10^3/uL [place] # (0.0-1.0) 10^3/uL Eos # (0.0-0.7) 10^3/uL Baso # (0.0-0.1) 10^3/uL Absolute Nucleated RBC x10^3/uL Nucleated RBC % /100WBC Absolute Retic 0.044 (0.020-0.110) 10^6/uL Sodium (135-145) mmol/L Potassium (3.5-5.0) mmol/L Chloride (101-111) mmol/L Carbon Dioxide (21-32) mmol/L Anion Gap (6-13) BUN (6-20) mg/dL Creatinine (0.4-1.0) mg/dL Estimated GFR (MDRD) (>89) Glucose (70-100) mg/dL Calcium (8.5-10.3) mg/dL Lactate Dehydrogenase 154 (91-225) IU/L TSH (0.34-5.60) uIU/mL ABX Reporting Has patient been on IV antibiotics over the past 48 hours?: Yes Assessment/Plan - Problem List (1) Cough in adult Impression: Conclusion/Plan: pt report she feel better, breathing is better. 96% sats on 2 liter of O2 continue antibiotics preliminary blood culture is negative pt report she had cough and sick for over one week, WBC 10.4, ER provider view pt had R base infiltrate Azith and Rocephin for pt blood culture, follow up Mucinex (2) Leg edema Conclusion/Plan: slight better, continue Lasix chronic condition. There is no tenderness, erythema, or pain. It seems from pt' s heart condition. Pt has normal renal function. order ECHO continue home Lasix daily lab, vital monitor (3) Generalized weakness Conclusion/Plan: continue PT/OT pt state she can not stand up and feels very weakness PT/OT evaluation and treatment (4) Congenital heart failure Conclusion/Plan: ECHO reveals 50-55% EF, mild impaired LV function. cardiac diet low sodium daily weight I/O order ECHO, follow up continue Lasix cardiac diet low sodium daily weight I/O (5) Hypokalemia Conclusion/Plan: resolved replacement of Potassium daily lab monitor (6) Anemia Conclusion/Plan: mild iron deficiency ferrous sulf HGB 10.9, order anemia study
[2018-02-18] MEDS: ATORVASTATIN 10 MG TABLET PO SCH (20:28)
[2018-02-18] MEDS: MIRTAZAPINE 15 MG TABLET PO SCH (20:28)
[2018-02-19] MEDS: SODIUM CHLORIDE FLUSH 0.9% 10 ML SYRINGE IVP SCH ×2 (01:05→09:57)
[2018-02-19] MEDS: DOCUSATE SODIUM 100 MG CAPSULE PO SCH ×2 (05:15→14:15)
[2018-02-19] MEDS ORDERED: CALCIUM CARBONATE CHEW 500 MG TABLET PO PRN (05:58)
[2018-02-19 06:28] LABS: BASOPHILS % (AUTO) 0.2 %; EOSINOPHILS # (AUTO) 0.1 10^3/uL (0.0-0.7); EOSINOPHILS % (AUTO) 1.4 %; HGB - HEMOGLOBIN 9.8 g/dL (12.0-16.0); LYMPHOCYTES # (AUTO) 2.1 10^3/uL (1.5-3.5); LYMPHOCYTES % (AUTO) 22.5 %; MEAN CORPUSCULAR HEMOGLOBIN 29.3 pg (27.0-31.0); MEAN CORPUSCULAR HGB CONC 32.9 g/dL (32.0-36.0); MEAN CORPUSCULAR VOLUME 88.9 fL (81.0-99.0); MEAN PLATELET VOLUME 7.4 fL (7.9-10.8); MONOCYTES # (AUTO) 0.9 10^3/uL (0.0-1.0); MONOCYTES % (AUTO) 10.1 %; NEUTROPHILS % (AUTO) 65.8 %; PLT - PLATELET COUNT 222 10^3/uL (130-450); RED BLOOD COUNT 3.36 10^6/uL (4.20-5.40); RED CELL DISTRIBUTION WIDTH 12.7 % (12.0-15.0); WHITE BLOOD COUNT 9.2 x10^3/uL (4.8-10.8)
[2018-02-19 06:37] LABS: CALCIUM 8.5 mg/dL (8.5-10.3)
[2018-02-19] MEDS ORDERED: POTASSIUM CHLORIDE 20 MEQ TABLET PO SCH (07:35)
[2018-02-19] MEDS ORDERED: LEVOTHYROXINE 25 MCG TABLET PO SCH (08:00)
[2018-02-19] MEDS ORDERED: GI COCKTAIL 120 ML BOTTLE PO PRN (08:58)
[2018-02-19] MEDS ORDERED: AZITHROMYCIN 250 MG TABLET PO SCH (09:00)
--- NOTE | 2018-02-19 09:04 | Discharge Plan ---
Discharge Plan Disposition: Home, Self Care Condition: Poor Prescriptions: Calcium Carbonate [Tums (Calcium Carbonate 500mg)] 500 mg PO BID PRN #10 tablet PRN Reason: GERD cefUROXime axetil [Ceftin] 250 mg PO Q12H #14 tablet Ferrous Sulfate 325 mg PO DAILY #10 tablet guaiFENesin [Mucinex] 600 mg PO BID PRN #10 tablet PRN Reason: Cough Levothyroxine [Synthroid] 25 mcg PO QDAC #10 tablet Diet: Regular Activity Restrictions: Activity as Tolerated Shower Restrictions: No (caregiver closely monitor, fall precaution) Assistance Devices: Walker Weight Bearing: Full Weight Instruction Topics: Levothyroxine tablets, Cefuroxime tablets, Pneumonia, ED Hypothyroidism Additional Instructions or Follow Up instructions: You may follow up your PCP in one week. Your test TSH is high and T3 is low, you are prescribed 25 mcg Levothyroxine, you may follow up your PCP to continue manage your hypothyroid. Should your symptoms return or worsen, you may present ER or call 911 for help. No Smoking: If you smoke, Please STOP! Call for help. Follow-up with: Zainab Hahn ARNP [Primary Care Provider] -
[2018-02-19] MEDS: FERROUS SULFATE 325 MG TABLET PO SCH (09:55)
[2018-02-19] MEDS: QUEtiapine 25 MG TABLET PO SCH ×2 (09:56→14:15)
[2018-02-19] MEDS: CYANOCOBALAMIN 500 MCG TABLET PO SCH (09:56)
[2018-02-19] MEDS: CHOLECALCIFEROL 1,000 UNIT TABLET PO SCH (09:56)
[2018-02-19] MEDS: MULTIVITAMIN TABLET PO SCH (09:56)
[2018-02-19] MEDS: POLYETHYLENE GLYCOL 3350 17 GM PACKET PO SCH (09:57)
[2018-02-19] MEDS: FUROSEMIDE 20 MG TABLET PO SCH ×2 (09:57→12:18)
[2018-02-19] MEDS: SACCHAROMYCES BOULARDII 250 MG CAPSULE PO SCH (09:57)
[2018-02-19] MEDS: ENOXAPARIN 40 MG/0.4 ML SYRINGE SUBQ SCH (09:57)
[2018-02-19] MEDS: POTASSIUM CHLORIDE 10 MEQ CAPSULE PO SCH (09:57)
[2018-02-19] MEDS: cefTRIAXone 2 GM in SODIUM CHLORIDE 0.9% MINIBAG 100 ML IV SCH (09:57)
[2018-02-19] MEDS: guaiFENesin 600 MG TABLET PO SCH (09:58)
--- NOTE | 2018-02-19 11:12 | DISCHARGE SUMMARY ---
Discharge Summary Discharge Date: 02/19/18 Discharging Provider: RECINOS Primary Care Provider: Dr Hahn Condition at Discharge: Poor Discharge Disposition: 01 Home, Self Care Discharge Facility Name: home - DIAGNOSES Admission Diagnoses: (1) Cough in adult (2) Leg edema (3) Generalized weakness (4) Congenital heart failure (5) Hypokalemia (6) Anemia Discharge Diagnoses with Status of Each Condition: (1) Cough in adult resolved. pt was found to have pneumonia in ER, was treated with antibiotics. pt has 2liter of O2 with 99% sats. Pt is chronic O2 usage with 4 liter at home. pt is prescribe Ceftin to finish the antibiotics course. (2) Leg edema chronic condition. improved (3) Generalized weakness chronic, improved. (4) Congenital heart failure stable. (5) Hypokalemia resolved (6) Anemia chronic, stable. HGB9.8 (7) hypothyroidism pt is found high TSH and low T3. pt is prescribe 25 mcg Levothyroxine. follow up PCP to continue management. - HPI History of Present Illness: Ms. Webster is a 88-yrs-old female with a PMH significant for CHF, high cholesterol, shortness of breath, GERD, incontinence, anxiety, chronic back pain , who present ER for complaints of difficult to stand up and generalized weakness. Pt report she had cough with sputum for over a week. She state she swallowed all sputum, so she did not know the sputum color. She denies fever, chill, diaphoresis, or night sweating. Pt report today morning she just can not stand up. she report she usually stand up with her caregiver's help to walk with a walker but she just can not do it today. She feel very weakness today. She denies chest pain.CXR reveals chronic without significant acute finding. Dr. Rapp report pt does have right base infiltrate. Pt is afebrile. Pt report she used O2 tank in home, however, pt's O2 sats is 97% on room air. Lab test reveals slight low potassium and slight elevated BNP. - ALLERGIES Allergies/Adverse Reactions: Allergies Allergy/AdvReac Type Severity Reaction Status Date / Time amoxicillin [Amoxicillin] AdvReac Intermediate Diarrhea Verified 12/30/16 17:12 - MEDICATIONS Home Medications: Ambulatory Orders Medication Instructions Recorded Confirmed Lovastatin 20 mg PO QPM 02/23/13 02/17/18 Vitamin B Complex [B50 Balanced] 1 cap PO DAILYWM 02/23/13 02/17/18 Buprenorphine HCl/Naloxone HCl 1 film SL Q12H 12/04/16 02/17/18 [Suboxone 8 mg-2 mg Sl Film] Furosemide [Lasix] 40 mg PO 0800,1200 12/04/16 02/17/18 Mirtazapine 15 mg PO QPM 12/04/16 02/17/18 Potassium Chloride 10 meq PO DAILYWM 12/05/16 02/17/18 Cholecalciferol (Vitamin D3) 2,000 units PO DAILY 12/30/16 02/17/18 [Vitamin D3] Furosemide [Lasix] 20 mg PO 1600 12/30/16 02/17/18 QUEtiapine [SEROquel] 12.5 mg PO QPM 12/30/16 02/17/18 Quetiapine Fumarate 25 mg PO 1000,1400 12/30/16 02/17/18 Cyanocobalamin (Vitamin B-12) 1,000 mcg PO DAILY 02/17/18 02/17/18 [Vitamin B-12] Docusate Sodium 100 mg PO TID 02/17/18 02/17/18 Melatonin 5 mg PO QPM 02/17/18 02/17/18 Multivitamin [Theragran] 1 tab PO DAILY 02/17/18 02/17/18 Calcium Carbonate [Tums (Calcium 500 mg PO BID PRN #10 tablet 02/19/18 Carbonate 500mg)] Ferrous Sulfate 325 mg PO DAILY #10 tablet 02/19/18 Levothyroxine [Synthroid] 25 mcg PO QDAC #10 tablet 02/19/18 cefUROXime axetil [Ceftin] 250 mg PO Q12H #14 tablet 02/19/18 guaiFENesin [Mucinex] 600 mg PO BID PRN #10 tablet 02/19/18 - PHYSICAL EXAM AT DISCHARGE General Appearance: positive: No acute distress, Alert. negative: Lethargic Eyes Bilateral: positive: Normal inspection, PERRL, No lid inflammation, Conjunctivae nml ENT: positive: ENT inspection nml, Pharynx nml, No signs of dehydration. negative: Purulent nasal drainage, Pharyngeal erythema, Oral lesions Neck: positive: Nml inspection, Thyroid nml, No JVD, Trachea midline. negative : Thyromegaly, Lymphadenopathy (R), Lymphadenopathy (L), Stiff neck, Carotid bruit, Swelling/bruising, Tracheal deviation Respiratory: positive: Chest non-tender, No respiratory distress, Breath sounds nml. negative: Wheezes, Rales, Rhonchi Cardiovascular: positive: Regular rate & rhythm, No murmur, No gallop. negative : Irregularly irregular, Extrasystoles, Tachycardia, Bradycardia, JVD present, Systolic murmur, Diastolic murmur Peripheral Pulses: positive: 2+ Abdomen: positive: Non-tender, No organomegaly, Nml bowel sounds, No distention. negative: Tenderness, Guarding, Rebound Back: positive: Nml inspection. negative: CVA tenderness (R), CVA tenderness (L ) Skin: positive: Color nml, No rash, Warm, Dry. negative: Cyanosis, Diaphoresis , Pallor Extremities: positive: Non-tender, Full ROM, Nml appearance. negative: Calf tenderness, Joint swelling, Fabian's sign/cords Neurologic/Psychiatric: positive: Oriented x3, Sensation nml, Mood/affect nml. negative: Sensory loss, Facial droop, Slurred/abnml speech, Depressed mood/ affect - LABS Result Diagrams: 02/19/18 05:50 02/19/18 05:50 - FOLLOW UP Follow Up: You may follow up your PCP in one week. Your test TSH is high and T3 is low, you are prescribed 25 mcg Levothyroxine, you may follow up your PCP to continue manage your hypothyroid. Should your symptoms return or worsen, you may present ER or call 911 for help. - TIME SPENT Time Spent in Discharge (Minutes): 50
[2018-02-19 16:16] VITALS: BP 131/49
== END 2018-02-19 17:11 | disposition home or self-care (01) | DRG 195 ==
LOC: EDUNIT# → ED 09:06 → MS2 15:16
PROVIDERS: ADMIT Nurse Practitioner Gerontology; ATTEND Nurse Practitioner Gerontology
DX: J18.1 Lobar pneumonia, unspecified organism (principal); R09.02 Hypoxemia; I95.9 Hypotension, unspecified; J14 Pneumonia due to Hemophilus influenzae; D64.9 Anemia, unspecified; Z99.81 Dependence on supplemental oxygen; E87.6 Hypokalemia; D50.9 Iron deficiency anemia, unspecified; E03.9 Hypothyroidism, unspecified; I50.9 Heart failure, unspecified; E78.00 Pure hypercholesterolemia, unspecified; F41.9 Anxiety disorder, unspecified; G89.29 Other chronic pain; M54.9 Dorsalgia, unspecified
CPT/HCPCS: 36415; 71046; 80048; 82607; 82728; 83540; 83605; 83615; 83880; 84439; 84443; 84466; 84481; 84484; 85025; 85044; 87040; 87070; 87205; 93005; 93306; 96365; 99284

== ENCOUNTER 2018-06-19 09:51 | Outpatient (CLI) | payer MEDICARE, OTHER ==
[2018-06-19 20:26] LABS: THYROID STIMULATING HORMONE 0.64 uIU/mL (0.34-5.60)
[2018-06-19 20:28] LABS: FREE T4 (FREE THYROXINE) 1.03 ng/dL (0.58-1.64)
== END 2018-06-19 09:52 | disposition home or self-care (01) ==
LOC: LAB.F 09:51
PROVIDERS: ATTEND Internal Medicine
DX: E03.9 Hypothyroidism, unspecified (principal)
CPT/HCPCS: 36415; 84439; 84443; 84481

== ENCOUNTER 2018-07-06 09:00 | Outpatient (CLI) | payer MEDICARE, OTHER ==
[2018-07-06 17:59] LABS: BASOPHILS % (AUTO) 0.5 %; EOSINOPHILS # (AUTO) 0.1 10^3/uL (0.0-0.7); EOSINOPHILS % (AUTO) 1.6 %; HGB - HEMOGLOBIN 10.1 g/dL (12.0-16.0); LYMPHOCYTES # (AUTO) 1.8 10^3/uL (1.5-3.5); LYMPHOCYTES % (AUTO) 22.4 %; MEAN CORPUSCULAR HEMOGLOBIN 30.4 pg (27.0-31.0); MEAN CORPUSCULAR HGB CONC 32.8 g/dL (32.0-36.0); MEAN CORPUSCULAR VOLUME 92.7 fL (81.0-99.0); MEAN PLATELET VOLUME 8.2 fL (7.9-10.8); MONOCYTES # (AUTO) 0.6 10^3/uL (0.0-1.0); MONOCYTES % (AUTO) 7.1 %; NEUTROPHILS # (AUTO) 5.5 10^3/uL (1.5-6.6); NEUTROPHILS % (AUTO) 68.4 %; PLT - PLATELET COUNT 308 10^3/uL (130-450); RED BLOOD COUNT 3.34 10^6/uL (4.20-5.40)
[2018-07-06 18:23] LABS: CALCIUM 9.2 mg/dL (8.5-10.3)
== END 2018-07-06 09:01 | disposition home or self-care (01) ==
LOC: LAB.F 09:00
PROVIDERS: ATTEND Registered Nurse
DX: I50.9 Heart failure, unspecified (principal); D64.9 Anemia, unspecified
CPT/HCPCS: 36415; 80048; 82728; 83540; 83880; 84466; 85025

== ENCOUNTER 2018-07-15 10:55 | Outpatient (CLI) | payer MEDICARE, OTHER ==
[2018-07-15 18:20] LABS: CALCIUM 9.3 mg/dL (8.5-10.3)
== END 2018-07-15 10:56 | disposition home or self-care (01) ==
LOC: LAB.F 10:55
PROVIDERS: ATTEND Registered Nurse
DX: I50.9 Heart failure, unspecified (principal)
CPT/HCPCS: 36415; 80048; 83880

== ENCOUNTER 2018-07-16 09:29 | Outpatient (CLI) | payer MEDICARE, OTHER | END 2018-07-16 09:30 | disposition home or self-care (01) | LOC: DI 09:29 | PROVIDERS: ATTEND Registered Nurse | DX: R06.00 Dyspnea, unspecified (principal); R05 Cough; R60.9 Edema, unspecified | CPT/HCPCS: 93306 ==

== ENCOUNTER 2020-08-05 13:58 | Outpatient (CLI) | payer MEDICARE, OTHER | END 2020-08-05 13:59 | disposition critical access hospital (66) | LOC: EMS 13:58 | PROVIDERS: ATTEND Surgery | DX: R41.0 Disorientation, unspecified (principal) | CPT/HCPCS: A0425; A0429 ==

== ENCOUNTER 2020-08-05 14:52 | Inpatient (IN) | payer MEDICARE, OTHER ==
--- NOTE | 2020-08-05 15:26 | ED Physician Documentation ---
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: Other : Incontinence Psych: Anxiety, Other Musculoskeletal: Osteoporosis, Chronic back pain Derm: Other - Past Surgical History Past Surgical History: No HEENT: Tonsil/Adenoidectomy - Present Medications Home Medications: Ambulatory Orders Medication Instructions Recorded Confirmed Vitamin B Complex [B50 Balanced] 1 cap PO DAILYWM 02/23/13 10/27/19 Buprenorphine HCl/Naloxone HCl 0.5 film SL BID 12/04/16 10/27/19 [Suboxone 8 mg-2 mg Sl Film] Furosemide [Lasix] 40 mg PO 0800,1200 12/04/16 10/27/19 Mirtazapine 15 mg PO QPM 12/04/16 10/27/19 Potassium Chloride 10 meq PO DAILYWM 12/05/16 10/27/19 Cholecalciferol (Vitamin D3) 2,000 units PO DAILY 12/30/16 10/27/19 [Vitamin D3] Quetiapine Fumarate 25 mg PO 1000,1400 12/30/16 10/27/19 Docusate Sodium 100 mg PO TID 02/17/18 10/27/19 Melatonin 5 mg PO QPM 02/17/18 10/27/19 Multivitamin [Theragran] 1 tab PO DAILY 02/17/18 10/27/19 Ferrous Sulfate 325 mg PO DAILY #10 tablet 02/19/18 10/27/19 Spironolactone 25 mg PO DAILY 10/27/19 10/27/19 Furosemide 20 mg PO QPM 10/28/19 10/28/19 Levothyroxine [Synthroid] 100 mcg PO QDAC 10/28/19 10/28/19 Lisinopril [Prinivil] 5 mg PO DAILY 10/28/19 10/28/19 - Allergies Allergies/Adverse Reactions: Allergies Allergy/AdvReac Type Severity Reaction Status Date / Time amoxicillin [Amoxicillin] AdvReac Intermediate Diarrhea Verified 08/05/20 15:08 - Social History Does the pt smoke?: No Smoking Status: Never smoker Does the pt drink ETOH?: No Does the pt have substance abuse?: No - Immunizations Immunizations are current?: No Immunizations: TDAP >10years/unknown - POLST Patient has POLST: No POLST Status: Full Code Results - Vitals Vitals: Vital Signs - 24 hr 08/05/20 14:59 Temperature 36.8 C Heart Rate 80 Respiratory 18 Rate Blood Pressure 134/56 H O2 Saturation 93 Oxygen O2 Source [With Activity] Room air O2 Source Room air
[2020-08-05 15:43] LABS: BASOPHILS % (AUTO) 0.1 %; EOSINOPHILS % (AUTO) 0.1 %; HGB - HEMOGLOBIN 11.5 g/dL (12.0-16.0); LYMPHOCYTES % (AUTO) 4.3 %; MEAN CORPUSCULAR HEMOGLOBIN 30.5 pg (27.0-31.0); MEAN CORPUSCULAR HGB CONC 32.2 g/dL (32.0-36.0); MEAN CORPUSCULAR VOLUME 94.7 fL (81.0-99.0); MEAN PLATELET VOLUME 9.3 fL (7.9-10.8); MONOCYTES % (AUTO) 5.6 %; NEUTROPHILS % (AUTO) 87.4 %; PLT - PLATELET COUNT 308 10^3/uL (130-450); RED BLOOD COUNT 3.77 10^6/uL (4.20-5.40); RED CELL DISTRIBUTION WIDTH 12.9 % (12.0-15.0); WHITE BLOOD COUNT 34.1 x10^3/uL (4.8-10.8)
[2020-08-05 15:47] LABS: ABNORMAL LYMPHS % (MANUAL) 0 %
[2020-08-05 15:56] LABS: ALBUMIN 3.3 g/dL (3.2-5.5); ALBUMIN/GLOBULIN RATIO 0.8 (1.0-2.2); BILIRUBIN,TOTAL 0.6 mg/dL (0.2-1.0); CALCIUM 9.8 mg/dL (8.5-10.3); CREATININE 1.4 mg/dL (0.4-1.0); TOTAL PROTEIN 7.6 g/dL (6.7-8.2)
[2020-08-05] MEDS ORDERED: VANCOMYCIN INJ 1 GM in SODIUM CHLORIDE 0.9% 500 ML IV STA (16:09)
[2020-08-05] MEDS ORDERED: cefTRIAXone 1 GM VIAL IVP STA (16:09)
[2020-08-05] MEDS ORDERED: SODIUM CHLORIDE 0.9% 1,000 ML IV STA ×2 (16:11)
[2020-08-05 16:17] LABS: BAND NEUTROPHILS % (MANUAL) 9 %; DIFFERENTIAL COMMENT MANUAL DIFFERENTIAL; EOSINOPHILS # (MANUAL) 0.3 10^3/uL (0-0.7); LYMPHOCYTES # (MANUAL) 0.7 10^3/uL (1.5-3.5); LYMPHOCYTES % (MANUAL) 2 %; PLATELET ESTIMATE, MANUAL NORMAL (130-450,000) (NORMAL); PLATELET MORPHOLOGY NORMAL APPEARANCE (NORMAL); RBC MORPHOLOGY (MULTIPLE) NORMAL APPEARANCE (NORMAL)
--- NOTE | 2020-08-05 16:18 | ED Physician Documentation ---
History of Present Illness - Stated complaint Stated Complaint: ALOC - Chief complaint Chief Complaint: Neuro - History obtained from History obtained from: Patient, EMS - History of Present Illness Timing: Today Pain level max: 0 Pain level now: 0 - Additonal information Additional information: 89 yaer old female, is comfort care, DNR, reportedly lives alone. Neighbor checked on her today and found her to be altered. Has a history of CHF. Patient states that she feels fine. Has no complaints. 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: Other : Incontinence Psych: Anxiety, Other Musculoskeletal: Osteoporosis, Chronic back pain Derm: Other - Past Surgical History Past Surgical History: No HEENT: Tonsil/Adenoidectomy - Present Medications Home Medications: Ambulatory Orders Medication Instructions Recorded Confirmed Vitamin B Complex [B50 Balanced] 1 cap PO DAILYWM 02/23/13 10/27/19 Buprenorphine HCl/Naloxone HCl 0.5 film SL BID 12/04/16 10/27/19 [Suboxone 8 mg-2 mg Sl Film] Furosemide [Lasix] 40 mg PO 0800,1200 12/04/16 10/27/19 Mirtazapine 15 mg PO QPM 12/04/16 10/27/19 Potassium Chloride 10 meq PO DAILYWM 12/05/16 10/27/19 Cholecalciferol (Vitamin D3) 2,000 units PO DAILY 12/30/16 10/27/19 [Vitamin D3] Quetiapine Fumarate 25 mg PO 1000,1400 12/30/16 10/27/19 Docusate Sodium 100 mg PO TID 02/17/18 10/27/19 Melatonin 5 mg PO QPM 02/17/18 10/27/19 Multivitamin [Theragran] 1 tab PO DAILY 02/17/18 10/27/19 Ferrous Sulfate 325 mg PO DAILY #10 tablet 02/19/18 10/27/19 Spironolactone 25 mg PO DAILY 10/27/19 10/27/19 Furosemide 20 mg PO QPM 10/28/19 10/28/19 Levothyroxine [Synthroid] 100 mcg PO QDAC 10/28/19 10/28/19 Lisinopril [Prinivil] 5 mg PO DAILY 10/28/19 10/28/19 - Allergies Allergies/Adverse Reactions: Allergies Allergy/AdvReac Type Severity Reaction Status Date / Time amoxicillin [Amoxicillin] AdvReac Intermediate Diarrhea Verified 08/05/20 15:08 - Social History Does the pt smoke?: No Smoking Status: Never smoker Does the pt drink ETOH?: No Does the pt have substance abuse?: No - Immunizations Immunizations are current?: No Immunizations: TDAP >10years/unknown - POLST Patient has POLST: No POLST Status: Full Code PD ED PE NORMAL - Vitals Vital signs reviewed: Yes - General General: No acute distress, Well developed/nourished, Other (Alert, oriented to person and place, not to time.) - HEENT HEENT: Moist mucous membranes, Pharynx benign - Neck Neck: Supple, no meningeal sign - Cardiac Cardiac: RRR, Strong equal pulses - Respiratory Respiratory: No respiratory distress, Clear bilaterally - Abdomen Abdomen: Soft, Non tender, Non distended - Derm Derm: Warm and dry - Extremities Extremities: Other (R leg Large erythematous area from the ankle up the posterior aspect of the leg to nearly the hip. There is warmth and tenderness as well. Also has erythema around the anterior aspect of the right trevino. Neurovascularly intact. Left leg is normal) - Neuro Neuro: Other (alert, oriented to person and place) Results - Vitals Vitals: Vital Signs - 24 hr 08/05/20 08/05/20 14:59 16:06 Temperature 36.8 C 36.6 C Heart Rate 80 73 Respiratory 18 16 Rate Blood Pressure 134/56 H 157/70 H O2 Saturation 93 96 Oxygen O2 Source [With Activity] Room air O2 Source Room air - Labs Labs: Laboratory Tests 08/05/20 08/05/20 15:36 15:36 WBC 34.1 H RBC 3.77 L Hgb 11.5 L Hct 35.7 L MCV 94.7 MCH 30.5 MCHC 32.2 RDW 12.9 Plt Count 308 MPV 9.3 Neut # (Auto) Not Reportable Lymph # (Auto) Not Reportable Major # (Auto) Not Reportable Eos # (Auto) Not Reportable Baso # (Auto) Not Reportable Absolute Nucleated RBC Not Reportable Total Counted 100 Band Neuts % (Manual) 9 Abnorm Lymph % (Manual) 0 Nucleated RBC % Not Reportable Neutrophils # (Manual) 31.0 H Lymphocytes # (Manual) 0.7 L Monocytes # (Manual) 2.0 H Eosinophils # (Manual) 0.3 Basophils # (Manual) 0.0 Differential Comment MANUAL DIFFERENTIAL Platelet Estimate NORMAL (130-450,000) Platelet Morphology NORMAL APPEARANCE RBC Morph Micro Appear NORMAL APPEARANCE Sodium 139 Potassium 4.2 Chloride 91 L Carbon Dioxide 33 H Anion Gap 15.0 H BUN 29 H Creatinine 1.4 H Estimated GFR (MDRD) 35 L Glucose 159 H Calcium 9.8 Total Bilirubin 0.6 AST 25 ALT 18 Alkaline Phosphatase 62 Total Protein 7.6 Albumin 3.3 Globulin 4.3 H Albumin/Globulin Ratio 0.8 L Lipase 29 PD MEDICAL DECISION MAKING - ED course Complexity details: reviewed results, re-evaluated patient, considered differential, d/w patient, d/w [facility] consultant ED course: 89-year-old female with significant cellulitis to the right lower extremity. White blood cell count is 34. Blood cultures drawn. Lactate drawn. She is penicillin allergic, therefore given Rocephin and vancomycin. Patient is afebrile. She is DNR, comfort care. She does have CHF as well, so fluids were given slowly. Patient will need admission for IV antibiotics. Discussed the case with Dr. Ibrahim, hospitalist who accepts This document was made in part using voice recognition software. While efforts are made to proofread this document, sound alike and grammatical errors may occur. Departure - Departure Disposition: 66 [facility] DC/Xfer Clinical Impression: Cellulitis Qualifiers: Site of cellulitis: extremity Site of cellulitis of extremity: lower extremity Laterality: right Qualified Code(s): L03.115 - Cellulitis of right lower limb Leukocytosis Qualifiers: Leukocytosis type: unspecified Qualified Code(s): D72.829 - Elevated white blood cell count, unspecified Condition: Stable
[2020-08-05 16:57] LABS: BILIRUBIN,URINE NEGATIVE (NEGATIVE); GLUCOSE, URINE (UA) NEGATIVE (NEGATIVE); KETONES,URINE (UA) NEGATIVE (NEGATIVE); LEUKOCYTE ESTERASE, URINE TRACE (NEGATIVE); NITRITE,URINE NEGATIVE (NEGATIVE); OCCULT BLOOD,URINE TRACE-LYSE (NEGATIVE); PROTEIN,URINE TRACE mg/dL (NEGATIVE); UROBILINOGEN,URINE 0.2 (NORMAL) E.U./dL (NORMAL)
[2020-08-05 16:58] LABS: CLARITY,URINE HAZY (CLEAR)
[2020-08-05 17:05] LABS: RBC,URINE 0-5 /HPF (0-5)
[2020-08-05 17:06] LABS: BACTERIA,URINE None Seen /HPF (None Seen); SQUAMOUS EPITHELIAL CELL,UR NONE SEEN (<= Few)
[2020-08-05] MEDS ORDERED: ONDANSETRON 4 MG/2 ML VIAL IVP PRN (17:06)
[2020-08-05] MEDS ORDERED: oxyCODONE 5 MG TABLET PO PRN (17:06)
[2020-08-05] MEDS ORDERED: SODIUM CHLORIDE FLUSH 0.9% 10 ML SYRINGE IVP PRN (17:06)
[2020-08-05] MEDS ORDERED: ONDANSETRON ODT 4 MG TABLET TL PRN (17:06)
[2020-08-05 18:03] LABS: C. PNEUMONIAE- RESP PCR PANEL NOT DETECTED
[2020-08-05] MEDS: LACTATED RINGERS 1,000 ML IV SCH (18:41)
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
--- NOTE | 2020-08-05 21:27 | XRAY Report ---
PROCEDURE: Chest 1 View X-Ray INDICATIONS: Leukocytosis. Cough. TECHNIQUE: One view of the chest was acquired. COMPARISON: Chest radiograph 10/27/2019 FINDINGS: Surgical changes and devices: None. Lungs and pleura: Low lung volumes are seen bilaterally with chronic elevation of the right hemidiaph ragm and an air-filled loop of large bowel below the diaphragm. A possible small left pleural effusio n is seen with atelectasis of the left lung base that is new when compared to the radiographs from 10/27/2019. Mediastinum: Mediastinal contours appear normal. Heart size is normal. Atherosclerotic calcificatio ns are seen in the aorta. Bones and chest wall: No suspicious bony lesions. Overlying soft tissues appear unremarkable. IMPRESSION: Low lung volumes again seen with chronic elevation of the right hemidiaphragm. A possible new small l eft pleural effusion is suspected with atelectasis or consolidation of the left lung base. However, f indings are suboptimally evaluated due to patient positioning. Chest CT may be obtained for further e valuation if clinically indicated. Reviewed by: Ebenezer Shoemaker MD on 08/05/2020 9:25 PM PST Approved by: Ebenezer Shoemaker MD on 08/05/2020 9:25 PM PST Station ID: [id number]
[2020-08-05] MEDS: SODIUM CHLORIDE FLUSH 0.9% 10 ML SYRINGE IVP SCH (23:59)
[2020-08-06] MEDS: LACTATED RINGERS 1,000 ML IV SCH (06:09)
[2020-08-06 06:12] LABS: BASOPHILS # (AUTO) 0.2 10^3/uL (0.0-0.1); BASOPHILS % (AUTO) 0.6 %; EOSINOPHILS # (AUTO) 0.1 10^3/uL (0.0-0.7); EOSINOPHILS % (AUTO) 0.3 %; HGB - HEMOGLOBIN 10.2 g/dL (12.0-16.0); LYMPHOCYTES # (AUTO) 2.6 10^3/uL (1.5-3.5); LYMPHOCYTES % (AUTO) 9.1 %; MEAN CORPUSCULAR HEMOGLOBIN 30.5 pg (27.0-31.0); MEAN CORPUSCULAR HGB CONC 31.9 g/dL (32.0-36.0); MEAN CORPUSCULAR VOLUME 95.8 fL (81.0-99.0); MEAN PLATELET VOLUME 9.4 fL (7.9-10.8); MONOCYTES # (AUTO) 1.8 10^3/uL (0.0-1.0); MONOCYTES % (AUTO) 6.2 %; NEUTROPHILS # (AUTO) 23.1 10^3/uL (1.5-6.6); NEUTROPHILS % (AUTO) 81.9 %; PLT - PLATELET COUNT 249 10^3/uL (130-450); RED BLOOD COUNT 3.34 10^6/uL (4.20-5.40); WHITE BLOOD COUNT 28.2 x10^3/uL (4.8-10.8)
[2020-08-06 06:32] LABS: PLATELET ESTIMATE, MANUAL NORMAL (130-450,000) (NORMAL); PLATELET MORPHOLOGY NORMAL APPEARANCE (NORMAL)
[2020-08-06 06:33] LABS: RBC MORPHOLOGY (MULTIPLE) NORMAL APPEARANCE (NORMAL)
[2020-08-06 06:44] LABS: CALCIUM 8.9 mg/dL (8.5-10.3); CREATININE 0.9 mg/dL (0.4-1.0); CRP - C-REACTIVE PROTEIN 22.3 mg/dL (0-1.0); MAGNESIUM 2.3 mg/dL (1.7-2.8); PHOSPHORUS 2.5 mg/dL (2.5-4.6)
--- NOTE | 2020-08-06 07:20 | Ultrasound Report ---
PROCEDURE: Duplex Ext Veins Bilateral INDICATIONS: Lower extremity pain, erythema, edema TECHNIQUE: Real-time imaging, as well as color and pulse Doppler interrogation, were performed of the deep veins of both legs from the inguinal ligament to the popliteal fossa. Adequate augmentation was not able to be performed secondary to patient's condition. COMPARISON: None available FINDINGS: The deep veins are normally compressible, and free of intraluminal thrombus. Color and pu lse Doppler demonstrate normal phasic intravascular flow. There is normal augmentation response to d istal compression maneuver. IMPRESSION: 1. No DVT in either lower extremity. Reviewed by: Agnieszka Cadena MD on 08/06/2020 7:18 AM PST Approved by: Agnieszka Cadena MD on 08/06/2020 7:18 AM PST Station ID: [id number]
[2020-08-06] MEDS ORDERED: POTASSIUM CHLORIDE 20 MEQ TABLET PO ONE (07:21)
--- NOTE | 2020-08-06 08:15 | PROVIDER PROGRESS NOTE ---
Subjective - Prog Note Date Prog Note Date: 08/06/20 Prog Note Time: 08:14 - Subjective Pt reports feeling: Improved Subjective: She states that she is "just fine". But she has no self awareness that she has an infection in her leg. She notes that her right leg hurts but she does not know that she is in the hospital because she has a right leg infection. Otherwise she is cooperative. Cheerful. Eating 40 to 50% of her meals. Current Medications - Current Medications Current Medications: Active Medications Acetaminophen (Tylenol) 650 mg PO Q4HR PRN PRN Reason: Pain 1 to 4 Docusate Sodium (Colace 250mg Capsule) 250 - 500 mg PO DAILY [facility] Enoxaparin Sodium (Lovenox) 40 mg SUBQ DAILY [facility] Lactated Ringer's (Lr) 1,000 mls @ 85 mls/hr IV .[id number] [facility] Stop: 08/06/20 17:31 Last Admin: 08/06/20 06:09 Dose: 85 mls/hr Documented by: Ceftriaxone Sodium 1 gm/ (Sodium Chloride) 100 mls @ 200 mls/hr IV DAILY [facility] Vancomycin HCl 1 gm/ Sodium (Chloride) 250 mls @ 167 mls/hr IV Q24H [facility] Ondansetron HCl (Zofran Odt) 4 mg TL Q6HR PRN PRN Reason: Nausea / Vomiting Ondansetron HCl (Zofran Inj) 4 mg IVP Q6HR PRN PRN Reason: Nausea / Vomiting Oxycodone HCl (Roxicodone) 5 mg PO Q4HR PRN PRN Reason: Pain 5 to 7 Polyethylene Glycol (Miralax) 17 gm PO DAILY [facility] Senna (Senokot) 8.6 - 17.2 mg PO DAILY [facility] Sodium Chloride (Normal Saline Flush 0.9%) 10 ml IVP PRN PRN PRN Reason: NEEDED PER PROVIDER ORDERS Sodium Chloride (Normal Saline Flush 0.9%) 10 ml IVP 0100,0900,1700 [facility] Last Admin: 08/05/20 23:59 Dose: 10 ml Documented by: Vitamin B Complex [B50 Balanced] 1 cap PO DAILYWM 02/23/13 Buprenorphine HCl/Naloxone HCl [Suboxone 8 mg-2 mg Sl Film] 0.5 film SL BID 12/04/16 Furosemide [Lasix] 40 mg PO 0800,1200 12/04/16 Mirtazapine 15 mg PO QPM 12/04/16 Potassium Chloride 20 meq PO DAILYWM 12/05/16 Cholecalciferol (Vitamin D3) [Vitamin D3] 2,000 units PO DAILY 12/30/16 Quetiapine Fumarate 25 mg PO 1000,1400 12/30/16 Docusate Sodium 100 mg PO TID 02/17/18 Melatonin 5 mg PO QPM 02/17/18 Multivitamin [Theragran] 1 tab PO DAILY 02/17/18 Spironolactone 25 mg PO DAILY 10/27/19 Furosemide 20 mg PO QPM 10/28/19 Lisinopril [Prinivil] 5 mg PO DAILY 10/28/19 Levothyroxine [Synthroid] 75 mcg PO QDAC 08/06/20 Omeprazole Magnesium 20 mg PO DAILY 08/06/20 Objective - Vital Signs/Intake & Output Reviewed Vital Signs: Yes Vital Signs: Vital Signs x48h Temp Pulse Pulse Resp BP Pulse Ox 08/06/20 08:00 36.7 C 64 18 152/40 H 92 08/06/20 05:52 36.5 C 88 18 96 Intake & Output: Intake & Output 08/03/20 08/04/20 08/05/20 08/06/20 23:59 23:59 23:59 23:59 Intake Total 958.583 811.417 Balance 958.583 811.417 - Objective General Appearance: positive: Alert, Other (4 foot 10 inch female who weighs 5 4.5 kg and looks older than her stated age, unable to sit upright and is hunched forward in a kyphoid position because of her spine.) Eyes Bilateral: positive: PERRL, EOMI ENT: positive: No signs of dehydration Neck: positive: No JVD. negative: Stiff neck, Carotid bruit Respiratory: positive: No respiratory distress, Rhonchi (Occasional rhonchi that when she then coughs, clears.), Other (Diminished at the bases.). negative: Wheezes, Rales Cardiovascular: positive: Regular rate & rhythm, Systolic murmur. negative: Gallop/S4, Friction rub Abdomen: positive: Non-tender, No organomegaly, Nml bowel sounds, No distention Skin: positive: Warm, Dry, Other (The right calf is red and hot, parts of the trevino and top of the foot are red and hot. There is no purulence.) Extremities: positive: Full ROM, Pedal edema Neurologic/Psychiatric: positive: CN's nml (2-12) (Except mildly deaf), Motor nml (Except generalized weakness, she cannot sit up on her own), Disoriented to place, Disoriented to time - Lab Results Fish Bones: 08/06/20 05:50 08/06/20 05:50 Other Labs: Lab Results x24hrs 08/06/20 08/06/20 08/05/20 Range/Units 05:50 05:50 16:40 WBC 28.2 H (4.8-10.8) x10^3/uL RBC 3.34 L (4.20-5.40) 10^6/uL Hgb 10.2 L (12.0-16.0) g/dL Hct 32.0 L (37.0-47.0) % MCV 95.8 (81.0-99.0) fL MCH 30.5 (27.0-31.0) pg MCHC 31.9 L (32.0-36.0) g/dL RDW 13.0 (12.0-15.0) % Plt Count 249 (130-450) 10^3/uL MPV 9.4 (7.9-10.8) fL Neut # (Auto) 23.1 H Lymph # (Auto) 2.6 Tillman # (Auto) 1.8 H Eos # (Auto) 0.1 Baso # (Auto) 0.2 H Absolute Nucleated RBC 0.00 Total Counted Band Neuts % (Manual) (0 - 10) % Abnorm Lymph % (Manual) % Nucleated RBC % 0.0 Neutrophils # (Manual) (1.5-6.6) 10^3/uL Lymphocytes # (Manual) (1.5-3.5) 10^3/uL Monocytes # (Manual) (0.0-1.0) 10^3/uL Eosinophils # (Manual) (0-0.7) 10^3/uL Basophils # (Manual) (0-0.1) 10^3/uL Differential Comment Manual Slide Review Indicated Platelet Estimate NORMAL (130-450,000) (NORMAL) Platelet Morphology NORMAL APPEARANCE (NORMAL) RBC Morph Micro Appear NORMAL APPEARANCE (NORMAL) Sodium 140 (135-145) mmol/L Potassium 3.5 (3.5-5.0) mmol/L Chloride 102 (101-111) mmol/L Carbon Dioxide 28 (21-32) mmol/L Anion Gap 10.0 (6-13) BUN 21 H (6-20) mg/dL Creatinine 0.9 (0.4-1.0) mg/dL Estimated GFR (MDRD) 59 L (>89) Glucose 121 H (70-100) mg/dL Lactic Acid (0.5-2.2) mmol/L Calcium 8.9 (8.5-10.3) mg/dL Phosphorus 2.5 (2.5-4.6) mg/dL Magnesium 2.3 (1.7-2.8) mg/dL Total Bilirubin (0.2-1.0) mg/dL AST (10-42) IU/L ALT (10-60) IU/L Alkaline Phosphatase (42-121) IU/L C-Reactive Protein 22.3 H (0-1.0) mg/dL Total Protein (6.7-8.2) g/dL Albumin (3.2-5.5) g/dL Globulin (2.1-4.2) g/dL Albumin/Globulin Ratio (1.0-2.2) Lipase (22-51) U/L TSH (0.34-5.60) uIU/mL Urine Color YELLOW Urine Clarity HAZY (CLEAR) Urine pH 6.0 (5.0-7.5) PH Ur Specific [place] 1.015 (1.002-1.030) Urine Protein TRACE (NEGATIVE) mg/dL Urine Glucose (UA) NEGATIVE (NEGATIVE) mg/dL Urine Ketones NEGATIVE (NEGATIVE) mg/dL Urine Occult Blood TRACE-LYSE (NEGATIVE) Urine Nitrite NEGATIVE (NEGATIVE) Urine Bilirubin NEGATIVE (NEGATIVE) Urine Urobilinogen 0.2 (NORMAL) (NORMAL) E.U./dL Ur Leukocyte Esterase TRACE H (NEGATIVE) Urine RBC 0-5 (0-5) /HPF Urine WBC 0-3 (0-5) /HPF Ur Squamous Epith Cells NONE SEEN (<= Few) Urine Bacteria None Seen (None Seen) /HPF Ur Microscopic Review INDICATED Urine Culture Comments INDICATED Nasal Adenovirus (PCR) Nasal B. parapertussis DNA (PCR) Nasal Coronavir 229E PCR Nasal Coronavir HKU1 PCR Nasal Coronavir NL63 PCR Nasal Coronavir OC43 PCR Nasal Enterovir/Rhinovir PCR Nasal Influenza B PCR Nasal Influenza A PCR Nasal Parainfluen 1 PCR Nasal Parainfluen 2 PCR Nasal Parainfluen 3 PCR Nasal Parainfluen 4 PCR Nasal RSV (PCR) Nasal B.pertussis DNA PCR Nasal C.pneumoniae (PCR) Qasim Human Metapneumo PCR Nasal M.pneumoniae (PCR) Nasal SARS-CoV-2 (PCR) 08/05/20 08/05/20 08/05/20 Range/Units 16:38 16:30 15:36 WBC (4.8-10.8) x10^3/uL RBC (4.20-5.40) 10^6/uL Hgb (12.0-16.0) g/dL Hct (37.0-47.0) % MCV (81.0-99.0) fL MCH (27.0-31.0) pg MCHC (32.0-36.0) g/dL RDW (12.0-15.0) % Plt Count (130-450) 10^3/uL MPV (7.9-10.8) fL Neut # (Auto) Lymph # (Auto) Tillman # (Auto) Eos # (Auto) Baso # (Auto) Absolute Nucleated RBC Total Counted Band Neuts % (Manual) (0 - 10) % Abnorm Lymph % (Manual) % Nucleated RBC % Neutrophils # (Manual) (1.5-6.6) 10^3/uL Lymphocytes # (Manual) (1.5-3.5) 10^3/uL Monocytes # (Manual) (0.0-1.0) 10^3/uL Eosinophils # (Manual) (0-0.7) 10^3/uL Basophils # (Manual) (0-0.1) 10^3/uL Differential Comment Manual Slide Review Platelet Estimate (NORMAL) Platelet Morphology (NORMAL) RBC Morph Micro Appear (NORMAL) Sodium (135-145) mmol/L Potassium (3.5-5.0) mmol/L Chloride (101-111) mmol/L Carbon Dioxide (21-32) mmol/L Anion Gap (6-13) BUN (6-20) mg/dL Creatinine (0.4-1.0) mg/dL Estimated GFR (MDRD) (>89) Glucose (70-100) mg/dL Lactic Acid 1.7 (0.5-2.2) mmol/L Calcium (8.5-10.3) mg/dL Phosphorus (2.5-4.6) mg/dL Magnesium (1.7-2.8) mg/dL Total Bilirubin (0.2-1.0) mg/dL AST (10-42) IU/L ALT (10-60) IU/L Alkaline Phosphatase (42-121) IU/L C-Reactive Protein (0-1.0) mg/dL Total Protein (6.7-8.2) g/dL Albumin (3.2-5.5) g/dL Globulin (2.1-4.2) g/dL Albumin/Globulin Ratio (1.0-2.2) Lipase (22-51) U/L TSH 1.28 (0.34-5.60) uIU/mL Urine Color Urine Clarity (CLEAR) Urine pH (5.0-7.5) PH Ur Specific [place] (1.002-1.030) Urine Protein (NEGATIVE) mg/dL Urine Glucose (UA) (NEGATIVE) mg/dL Urine Ketones (NEGATIVE) mg/dL Urine Occult Blood (NEGATIVE) Urine Nitrite (NEGATIVE) Urine Bilirubin (NEGATIVE) Urine Urobilinogen (NORMAL) E.U./dL Ur Leukocyte Esterase (NEGATIVE) Urine RBC (0-5) /HPF Urine WBC (0-5) /HPF Ur Squamous Epith Cells (<= Few) Urine Bacteria (None Seen) /HPF Ur Microscopic Review Urine Culture Comments Nasal Adenovirus (PCR) NOT DETECTED Nasal B. parapertussis DNA (PCR) NOT DETECTED Nasal Coronavir 229E PCR NOT DETECTED Nasal Coronavir HKU1 PCR NOT DETECTED Nasal Coronavir NL63 PCR NOT DETECTED Nasal Coronavir OC43 PCR NOT DETECTED Nasal Enterovir/Rhinovir PCR NOT DETECTED Nasal Influenza B PCR NOT DETECTED Nasal Influenza A PCR NOT DETECTED Nasal Parainfluen 1 PCR NOT DETECTED Nasal Parainfluen 2 PCR NOT DETECTED Nasal Parainfluen 3 PCR NOT DETECTED Nasal Parainfluen 4 PCR NOT DETECTED Nasal RSV (PCR) NOT DETECTED Nasal B.pertussis DNA PCR NOT DETECTED Nasal C.pneumoniae (PCR) NOT DETECTED Qasim Human Metapneumo PCR NOT DETECTED Nasal M.pneumoniae (PCR) NOT DETECTED Nasal SARS-CoV-2 (PCR) NOT DETECTED 08/05/20 08/05/20 08/05/20 Range/Units 15:36 15:36 15:36 WBC 34.1 H (4.8-10.8) x10^3/uL RBC 3.77 L (4.20-5.40) 10^6/uL Hgb 11.5 L (12.0-16.0) g/dL Hct 35.7 L (37.0-47.0) % MCV 94.7 (81.0-99.0) fL MCH 30.5 (27.0-31.0) pg MCHC 32.2 (32.0-36.0) g/dL RDW 12.9 (12.0-15.0) % Plt Count 308 (130-450) 10^3/uL MPV 9.3 (7.9-10.8) fL Neut # (Auto) Not Reportable Lymph # (Auto) Not Reportable Tillman # (Auto) Not Reportable Eos # (Auto) Not Reportable Baso # (Auto) Not Reportable Absolute Nucleated RBC Not Reportable Total Counted 100 Band Neuts % (Manual) 9 (0 - 10) % Abnorm Lymph % (Manual) 0 % Nucleated RBC % Not Reportable Neutrophils # (Manual) 31.0 H (1.5-6.6) 10^3/uL Lymphocytes # (Manual) 0.7 L (1.5-3.5) 10^3/uL Monocytes # (Manual) 2.0 H (0.0-1.0) 10^3/uL Eosinophils # (Manual) 0.3 (0-0.7) 10^3/uL Basophils # (Manual) 0.0 (0-0.1) 10^3/uL Differential Comment MANUAL DIFFERENTIAL Manual Slide Review Platelet Estimate NORMAL (130-450,000) (NORMAL) Platelet Morphology NORMAL APPEARANCE (NORMAL) RBC Morph Micro Appear NORMAL APPEARANCE (NORMAL) Sodium 139 (135-145) mmol/L Potassium 4.2 (3.5-5.0) mmol/L Chloride 91 L (101-111) mmol/L Carbon Dioxide 33 H (21-32) mmol/L Anion Gap 15.0 H (6-13) BUN 29 H (6-20) mg/dL Creatinine 1.4 H (0.4-1.0) mg/dL Estimated GFR (MDRD) 35 L (>89) Glucose 159 H (70-100) mg/dL Lactic Acid (0.5-2.2) mmol/L Calcium 9.8 (8.5-10.3) mg/dL Phosphorus (2.5-4.6) mg/dL Magnesium (1.7-2.8) mg/dL Total Bilirubin 0.6 (0.2-1.0) mg/dL AST 25 (10-42) IU/L ALT 18 (10-60) IU/L Alkaline Phosphatase 62 (42-121) IU/L C-Reactive Protein 18.4 H (0-1.0) mg/dL Total Protein 7.6 (6.7-8.2) g/dL Albumin 3.3 (3.2-5.5) g/dL Globulin 4.3 H (2.1-4.2) g/dL Albumin/Globulin Ratio 0.8 L (1.0-2.2) Lipase 29 (22-51) U/L TSH (0.34-5.60) uIU/mL Urine Color Urine Clarity (CLEAR) Urine pH (5.0-7.5) PH Ur Specific [place] (1.002-1.030) Urine Protein (NEGATIVE) mg/dL Urine Glucose (UA) (NEGATIVE) mg/dL Urine Ketones (NEGATIVE) mg/dL Urine Occult Blood (NEGATIVE) Urine Nitrite (NEGATIVE) Urine Bilirubin (NEGATIVE) Urine Urobilinogen (NORMAL) E.U./dL Ur Leukocyte Esterase (NEGATIVE) Urine RBC (0-5) /HPF Urine WBC (0-5) /HPF Ur Squamous Epith Cells (<= Few) Urine Bacteria (None Seen) /HPF Ur Microscopic Review Urine Culture Comments Nasal Adenovirus (PCR) Nasal B. parapertussis DNA (PCR) Nasal Coronavir 229E PCR Nasal Coronavir HKU1 PCR Nasal Coronavir NL63 PCR Nasal Coronavir OC43 PCR Nasal Enterovir/Rhinovir PCR Nasal Influenza B PCR Nasal Influenza A PCR Nasal Parainfluen 1 PCR Nasal Parainfluen 2 PCR Nasal Parainfluen 3 PCR Nasal Parainfluen 4 PCR Nasal RSV (PCR) Nasal B.pertussis DNA PCR Nasal C.pneumoniae (PCR) Qasim Human Metapneumo PCR Nasal M.pneumoniae (PCR) Nasal SARS-CoV-2 (PCR) ABX Reporting Has patient been on IV antibiotics over the past 48 hours?: Yes Sepsis Event Note (H) - Evaluation Current Stage of Sepsis: Sepsis Possible source of Sepsis: positive: Skin/soft tissue - Sepsis Criteria Sepsis Criteria: WBC count greater than 12,000 or less than 4000, 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 No fever. While she has cognitive deficits that are mild, she was very altered on admission. That has improved to what I think may be her baseline status. Vague and forgetful but not sedated. However, she is using her remote as the phone. And the phone is her remote and she is getting frustrated that neither 1 wants to work for her. White cell count was 34.1 on admission and is 28.2 today. We have been treating her empirically with vancomycin and ceftriaxone IV. C-reactive protein was 18.4 on admission it is 22.3 this morning. Urine culture has no growth. Blood cultures are in process. We will continue to gently hydrate her with lactated Ringer's given the stable blood pressure. Follow-up blood cultures. Trend CBC. (2) Cellulitis of right lower extremity Conclusion/Plan: This appears to be the cause of her sepsis. We will treat her with vancomycin and ceftriaxone IV. Day #2. Check CRP. If she does not improve with IV antibiotics, will consider further imaging with a CT.She appears better today. At least from mental status. (3) Altered mental status Conclusion/Plan: She is reportedly more confused although review of records reveals she does have a history of cognitive impairment. Suspect her altered mental status is due to the sepsis and ongoing infection. She did not have focal deficits on exam and so we will hold off on obtaining a CT of the head. TSH is normal.. Will not check ammonia given her normal LFTs. Continue antibiotics to treat the underlying infection. Delirium precautions. (4) Acute kidney injury Resolved Conclusion/Plan: She was admitted earlier this year for acute kidney injury and her creatinine is improved since then but still remains elevated compared to her baseline of 1.0. Her creatinine On admission was 1.4. This morning she is 0.9 and back to baseline. Suspect this may be prerenal injury due to the ongoing infection and likely poor oral intake. We will gently hydrate her with lactated Ringer's. Hold her home spironolactone. Continue to Monitor renal function and urine output. (5) Chronic respiratory failure with hypoxia Conclusion/Plan: Her son tells me that she supposed be on oxygen at baseline but she is currently saturating 93 to 96% on room air. I am not sure why she is on oxygen. Review of records reveal a possible diagnosis of initial lung disease. 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 She continues to maintain good saturations between admission and today. We will continue to hold off on giving her baseline oxygen until she needs it (6) Hypothyroidism Conclusion/Plan: TSH is 1.28. As such on adequate supplementation and will continue the same dose. (7) Cognitive impairment Conclusion/Plan: Review of records reveals she does have some cognitive impairment. She does live alone at home. She is currently altered likely due to the ongoing infection. Treatment as mentioned above for ultimately status.
[2020-08-06] MEDS: polyethylene glycoL 3350 17 GM PACKET PO SCH (08:55)
[2020-08-06] MEDS: cefTRIAXone 1 GM in SODIUM CHLORIDE 0.9% MINIBAG 100 ML IV SCH (08:55)
[2020-08-06] MEDS: ENOXAPARIN 40 MG/0.4 ML SYRINGE SUBQ SCH (08:55)
[2020-08-06] MEDS: DOCUSATE SODIUM 250 MG CAPSULE PO SCH (09:48)
[2020-08-06] MEDS: SENNA 8.6 MG TABLET PO SCH (09:48)
[2020-08-06] MEDS: SODIUM CHLORIDE FLUSH 0.9% 10 ML SYRINGE IVP SCH ×3 (10:13→23:53)
--- NOTE | 2020-08-06 12:01 | PHARMACY PROGRESS NOTE ---
- Best Possible Medication History Admit Date and Time: 08/05/20 4933 Processed by: Pharmacy Medication History completed: Yes Patient Interview: Pt unable to participate Secondary Source(s): Pharmacy records, Insurance records As the person ultimately responsible for medication therapy, providers are able to order a medication from an existing home medication list in [facility] via the "Reconcile Routine" prior to Confirmation of that medication by client support representative. Such practice is discouraged except when the physician, in their clinical judgment, deems that a medical need exists for a medication without regard to previous use.
--- NOTE | 2020-08-06 13:44 | PHARMACY PROGRESS NOTE ---
- Therapy Status Vancomycin regimen day #: 2 Therapy status: Awaiting steady state Basis for treatment: Empirical Treatment indication: sepsis, cellulitis Trough goal: 15-20 - HYACINTH Risk Risk level for Acute Kidney Injury: Moderate Acute Kidney Injury risk factors: Baseline CrCl <50, Goal trough >15, Sepsis - Monitoring and Recommendation Clinical response to treatment: I&O Previous 24 hours 08/04/20 08/05/20 08/06/20 23:59 23:59 23:59 Intake Total 708.040 3101.417 Balance 794.458 9782.417 Lab Results 08/06/20 08/05/20 05:50 15:36 BUN 21 H 29 H Creatinine 0.9 1.4 H Estimated GFR (MDRD) 59 L 35 L Cultures 08/05/20 16:40 Urine,Catheterized Urine Culture - Final No growth Monitoring plan: Daily serum creatinine Next trough due prior to maintenance dose #: 4 Next trough due (date/time): 08/08 AT 1630 Areas for additional monitoring: IV to PO when appropriate, Therapy de- escalation based on culture results Pharmacy recommendation: Continue current regime
[2020-08-06] MEDS: VANCOMYCIN INJ 1 GM in SODIUM CHLORIDE 0.9% 250 ML IV SCH (16:42)
[2020-08-06] MEDS: ACETAMINOPHEN 325 MG TABLET PO PRN (20:43)
[2020-08-06] MEDS: MIRTAZAPINE 15 MG TABLET PO SCH (20:43)
[2020-08-06] MEDS: FUROSEMIDE 20 MG TABLET PO SCH (20:43)
[2020-08-07 05:18] LABS: BASOPHILS # (AUTO) 0.1 10^3/uL (0.0-0.1); BASOPHILS % (AUTO) 0.5 %; EOSINOPHILS # (AUTO) 0.2 10^3/uL (0.0-0.7); EOSINOPHILS % (AUTO) 1.1 %; HGB - HEMOGLOBIN 9.7 g/dL (12.0-16.0); LYMPHOCYTES # (AUTO) 2.6 10^3/uL (1.5-3.5); LYMPHOCYTES % (AUTO) 13.1 %; MEAN CORPUSCULAR HGB CONC 31.2 g/dL (32.0-36.0); MEAN CORPUSCULAR VOLUME 96.3 fL (81.0-99.0); MEAN PLATELET VOLUME 9.9 fL (7.9-10.8); MONOCYTES # (AUTO) 1.4 10^3/uL (0.0-1.0); MONOCYTES % (AUTO) 7.2 %; NEUTROPHILS % (AUTO) 76.5 %; PLT - PLATELET COUNT 267 10^3/uL (130-450); RED BLOOD COUNT 3.23 10^6/uL (4.20-5.40); RED CELL DISTRIBUTION WIDTH 12.9 % (12.0-15.0); WHITE BLOOD COUNT 19.6 x10^3/uL (4.8-10.8)
[2020-08-07 05:35] LABS: CALCIUM 8.9 mg/dL (8.5-10.3); CREATININE 0.9 mg/dL (0.4-1.0); CRP - C-REACTIVE PROTEIN 19.6 mg/dL (0-1.0); MAGNESIUM 2.4 mg/dL (1.7-2.8); PHOSPHORUS 3.2 mg/dL (2.5-4.6)
[2020-08-07] MEDS: LEVOTHYROXINE 75 MCG TABLET PO SCH (06:20)
[2020-08-07] MEDS: FUROSEMIDE 20 MG TABLET PO SCH ×3 (09:11→20:29)
[2020-08-07] MEDS: POTASSIUM CHLORIDE 20 MEQ TABLET PO SCH (09:11)
[2020-08-07] MEDS: SENNA 8.6 MG TABLET PO SCH (09:12)
[2020-08-07] MEDS: polyethylene glycoL 3350 17 GM PACKET PO SCH (09:12)
[2020-08-07] MEDS: DOCUSATE SODIUM 250 MG CAPSULE PO SCH (09:12)
[2020-08-07] MEDS: ENOXAPARIN 40 MG/0.4 ML SYRINGE SUBQ SCH (09:12)
[2020-08-07] MEDS: cefTRIAXone 1 GM in SODIUM CHLORIDE 0.9% MINIBAG 100 ML IV SCH (09:30)
[2020-08-07] MEDS: QUEtiapine 25 MG TABLET PO SCH ×2 (10:21→13:16)
[2020-08-07] MEDS: SODIUM CHLORIDE FLUSH 0.9% 10 ML SYRINGE IVP SCH ×2 (10:22→16:58)
--- NOTE | 2020-08-07 10:27 | PROVIDER PROGRESS NOTE ---
Subjective - Prog Note Date Prog Note Date: 08/07/20 Prog Note Time: 10:25 - Subjective Pt reports feeling: Improved Subjective: she is eating breakfast without an aid, reading her large print magazine and has TV Going. She falls asleep and then wakes up without missing a beat. denies cp, cough, sob. Foot feels "fine." Current Medications - Current Medications Current Medications: Active Medications Acetaminophen (Tylenol) 650 mg PO Q4HR PRN PRN Reason: Pain 1 to 4 Last Admin: 08/06/20 20:43 Dose: 650 mg Documented by: Docusate Sodium (Colace 250mg Capsule) 250 - 500 mg PO DAILY [facility] Last Admin: 08/07/20 09:12 Dose: 250 mg Documented by: Enoxaparin Sodium (Lovenox) 40 mg SUBQ DAILY [facility] Last Admin: 08/07/20 09:12 Dose: 40 mg Documented by: Furosemide (Lasix) 20 mg PO QPM [facility] Last Admin: 08/06/20 20:43 Dose: 20 mg Documented by: Furosemide (Lasix) 40 mg PO 0800,1200 [facility] Last Admin: 08/07/20 09:11 Dose: 40 mg Documented by: Ceftriaxone Sodium 1 gm/ (Sodium Chloride) 100 mls @ 200 mls/hr IV DAILY [facility] Last Infusion: 08/07/20 10:22 Dose: Infused Documented by: Vancomycin HCl 1 gm/ Sodium (Chloride) 250 mls @ 167 mls/hr IV Q24H [facility] Last Infusion: 08/06/20 18:15 Dose: Infused Documented by: Levothyroxine Sodium (Synthroid) 75 mcg PO QDAC [facility] Last Admin: 08/07/20 06:20 Dose: 75 mcg Documented by: Mirtazapine (Remeron) 15 mg PO QPM [facility] Last Admin: 08/06/20 20:43 Dose: 15 mg Documented by: Ondansetron HCl (Zofran Odt) 4 mg TL Q6HR PRN PRN Reason: Nausea / Vomiting Ondansetron HCl (Zofran Inj) 4 mg IVP Q6HR PRN PRN Reason: Nausea / Vomiting Oxycodone HCl (Roxicodone) 5 mg PO Q4HR PRN PRN Reason: Pain 5 to 7 Suboxone 8 Mg-2 Mg (Sl Film) 1 each SL DAILY [facility] Last Admin: 08/07/20 09:11 Dose: 1 each Documented by: Polyethylene Glycol (Miralax) 17 gm PO DAILY [facility] Last Admin: 08/07/20 09:12 Dose: 17 gm Documented by: Potassium Chloride (K-Dur) 20 meq PO DAILYWM [facility] Last Admin: 08/07/20 09:11 Dose: 20 meq Documented by: Quetiapine Fumarate (Seroquel) 12.5 mg PO 1000,1400 [facility] Last Admin: 08/07/20 10:21 Dose: 12.5 mg Documented by: Senna (Senokot) 8.6 - 17.2 mg PO DAILY [facility] Last Admin: 08/07/20 09:12 Dose: 8.6 mg Documented by: Sodium Chloride (Normal Saline Flush 0.9%) 10 ml IVP PRN PRN PRN Reason: NEEDED PER PROVIDER ORDERS Sodium Chloride (Normal Saline Flush 0.9%) 10 ml IVP 0100,0900,1700 [facility] Last Admin: 08/07/20 10:22 Dose: 10 ml Documented by: Buprenorphine HCl/Naloxone HCl [Suboxone 8 mg-2 mg Sl Film] 1 film SL DAILY 12/04/16 Furosemide [Lasix] 40 mg PO 0800,1200 12/04/16 Mirtazapine 15 mg PO QPM 12/04/16 Potassium Chloride 20 meq PO DAILYWM 12/05/16 Quetiapine Fumarate 12.5 mg PO 1000,1400 12/30/16 Spironolactone 25 mg PO DAILY 10/27/19 Furosemide 20 mg PO QPM 10/28/19 Levothyroxine [Synthroid] 75 mcg PO QDAC 08/06/20 Omeprazole Magnesium 20 mg PO DAILY 08/06/20 Objective - Vital Signs/Intake & Output Reviewed Vital Signs: Yes Vital Signs: Vital Signs x48h Temp Pulse Resp BP Pulse Ox 08/07/20 08:00 36.4 C L 67 18 183/55 H 97 Intake & Output: Intake & Output 08/04/20 08/05/20 08/06/20 08/07/20 23:59 23:59 23:59 23:59 Intake Total 544.428 5147.417 100 Balance 648.749 3252.417 100 - Objective General Appearance: positive: No acute distress, Alert, Other (Short statured elderly female who does not want to get out of bed. She wrinkles her nose and frowns at me and says that she prefers to staying in bed. She is sitting upright, but her kyphosis causes her either lean too far forward, or to for back without ability to sit completely upright.) Eyes Bilateral: positive: PERRL, EOMI ENT: positive: Pharynx nml Neck: positive: No JVD. negative: Stiff neck Respiratory: positive: No respiratory distress, Rhonchi (Mid lung martínez, very faint. But no respiratory distress with this). negative: Wheezes, Rales Cardiovascular: positive: Regular rate & rhythm, Systolic murmur. negative: Gallop/S4, Friction rub Abdomen: positive: Non-tender, No organomegaly, Nml bowel sounds, No distention, Other (Because of the kyphosis, her abdomen is unusually protuberant) Skin: positive: Warm, Dry Extremities: positive: Pedal edema, Other (She has bilateral pitting edema. However, all the redness and heat of her right leg skin has completely resolved.She has onychomycosis.) - Lab Results Fish Bones: 08/07/20 05:11 08/07/20 05:11 Other Labs: Lab Results x24hrs 08/07/20 08/07/20 Range/Units 05:11 05:11 WBC 19.6 H (4.8-10.8) x10^3/uL RBC 3.23 L (4.20-5.40) 10^6/uL Hgb 9.7 L (12.0-16.0) g/dL Hct 31.1 L (37.0-47.0) % MCV 96.3 (81.0-99.0) fL MCH 30.0 (27.0-31.0) pg MCHC 31.2 L (32.0-36.0) g/dL RDW 12.9 (12.0-15.0) % Plt Count 267 (130-450) 10^3/uL MPV 9.9 (7.9-10.8) fL Neut # (Auto) 15.0 H (1.5-6.6) 10^3/uL Lymph # (Auto) 2.6 (1.5-3.5) 10^3/uL [place] # (Auto) 1.4 H (0.0-1.0) 10^3/uL Eos # (Auto) 0.2 (0.0-0.7) 10^3/uL Baso # (Auto) 0.1 (0.0-0.1) 10^3/uL Absolute Nucleated RBC 0.00 x10^3/uL Nucleated RBC % 0.0 /100WBC Sodium 140 (135-145) mmol/L Potassium 3.6 (3.5-5.0) mmol/L Chloride 103 (101-111) mmol/L Carbon Dioxide 27 (21-32) mmol/L Anion Gap 10.0 (6-13) BUN 18 (6-20) mg/dL Creatinine 0.9 (0.4-1.0) mg/dL Estimated GFR (MDRD) 59 L (>89) Glucose 101 H (70-100) mg/dL Calcium 8.9 (8.5-10.3) mg/dL Phosphorus 3.2 (2.5-4.6) mg/dL Magnesium 2.4 (1.7-2.8) mg/dL C-Reactive Protein 19.6 H (0-1.0) mg/dL ABX Reporting Has patient been on IV antibiotics over the past 48 hours?: Yes Sepsis Event Note (H) - Evaluation Current Stage of Sepsis: Sepsis Possible source of Sepsis: positive: Skin/soft tissue - Sepsis Criteria Sepsis Criteria: WBC count greater than 12,000 or less than 4000, 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 Source is right lower extremity cellulitis. No fever. While she has cognitive deficits that are mild, she was very altered on admission. That has improved to what I think may be her baseline status. Vague and forgetful but not sedated. However, she is using her remote as the phone. And the phone is her remote and she is getting frustrated that neither 1 wants to work for her. White cell count was 34.1 >> 28.2>>19.6 today. We have been treating her empirically with vancomycin and ceftriaxone IV. C-reactive protein was 18.4 on admission>> 22.3>>19.6 this morning. Urine culture has no growth. Blood cultures are negative. Plan: Trend CBC. DC IVF change IV abx to po If she has no increased WBC or fever after 24 hours of oral, she most likely could go home depending on her physical status. (2) Cellulitis of right lower extremity improved. Conclusion/Plan: This appears to be the cause of her sepsis. We will treat her with vancomycin and ceftriaxone IV. Day #3 today. White cell count his 19.6 today resolved. C-reactive protein and white cell count are improving every day. Plan: Stop IV antibiotics, switch to p.o. Keflex (3) Altered mental status probably resolved Conclusion/Plan: She is reportedly more confused although review of records reveals she does have a history of cognitive impairment. Suspect her altered mental status is due to the sepsis and ongoing infection. She did not have focal deficits on exam and so we held off on obtaining a CT of the head. TSH is normal.. Will not check ammonia given her normal LFTs. Continue antibiotics to treat the underlying infection. Delirium precautions. Plan: Get her out of bed in spite of her objections. Work with PT for a goal of return to home. She has a caregiver/roommate (4) Acute kidney injury Resolved Conclusion/Plan: She was admitted earlier this year for acute kidney injury and her creatinine is improved since then but still remains elevated compared to her baseline of 1.0. Her creatinine On admission was 1.4. This morning she is 0.9 and back to baseline. Suspect this may be prerenal injury due to the ongoing infection and likely poor oral intake. We will gently hydrate her with lactated Ringer's. Hold her home spironolactone. Continue to Monitor renal function and urine output. (5) Chronic respiratory failure with hypoxia Conclusion/Plan: Her son tells me that she supposed be on oxygen at baseline but she is currently saturating 93 to 96% on room air. I am not sure why she is on oxygen. Review of records reveal a possible diagnosis of initial lung disease. 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 She continues to maintain good saturations between admission and today. We will continue to hold off on giving her baseline oxygen until she needs it (6) Hypothyroidism Conclusion/Plan: TSH is 1.28. As such on adequate supplementation and will continue the same dose. (7) Cognitive impairment Conclusion/Plan: Review of records reveals she does have some cognitive impairment. She does live alone at home. She is currently altered likely due to the ongoing infection. Treatment as mentioned above for ultimately status. (8) Normocytic Anemia Conclusion/Plan: Anemic with normal size indices since November 2016. She has not gone up above 10.5 or 11.1 g of hemoglobin since then. She had a normal CBC in 2014 and 2015. TSH has been normal. B12 is 1122 in June 2016. 815 in January 2018. Iron has been normal in June 2016 and June 2018 and was 19 in January 2018. Plan: Check stool for fecal occult blood. I suspect this is more a function of lack of nutritional intake gets adequate. Bili is not elevated so I do not think she is hemolyzing. She does not describe anticipated weight loss I do not think she has a neoplasm. The only other intervention is to recommend vitamins, 1 or 2 on a daily basis.
[2020-08-07] MEDS ORDERED: GLYCERIN ADULT SUPP PR ONE (11:36)
[2020-08-07] MEDS: PRENATAL VITAMIN TABLET PO SCH (11:46)
[2020-08-07] MEDS ORDERED: MAGNESIUM HYDROXIDE 2,400 MG/30 ML UDC PO ONE (13:56)
--- NOTE | 2020-08-07 14:14 | PHARMACY PROGRESS NOTE ---
- Therapy Status Vancomycin regimen day #: 3 Therapy status: Awaiting steady state Basis for treatment: Empirical Trough goal: 15-20 - HYACINTH Risk Risk level for Acute Kidney Injury: Moderate Acute Kidney Injury risk factors: Baseline CrCl <50, Goal trough >15, Sepsis - Monitoring and Recommendation Clinical response to treatment: I&O Previous 24 hours 08/05/20 08/06/20 08/07/20 23:59 23:59 23:59 Intake Total 237.203 6680.417 220 Balance 059.016 4866.417 220 Lab Results 08/07/20 08/06/20 08/05/20 05:11 05:50 15:36 BUN 18 21 H 29 H Creatinine 0.9 0.9 1.4 H Estimated GFR (MDRD) 59 L 59 L 35 L Cultures 08/05/20 16:22 Blood - Right Arm Blood Culture - Preliminary NO GROWTH AFTER 1 DAY 08/05/20 16:30 Blood - Right Hand Blood Culture - Preliminary NO GROWTH AFTER 1 DAY 08/05/20 16:40 Urine,Catheterized Urine Culture - Final No growth Monitoring plan: Daily serum creatinine Areas for additional monitoring: IV to PO when appropriate, Therapy de- escalation based on culture results Pharmacy recommendation: Discontinue therapy
[2020-08-07] MEDS: VANCOMYCIN INJ 1 GM in SODIUM CHLORIDE 0.9% 250 ML IV SCH (16:57)
[2020-08-07] MEDS: ACETAMINOPHEN 325 MG TABLET PO PRN (18:26)
[2020-08-07] MEDS: MIRTAZAPINE 15 MG TABLET PO SCH (20:28)
[2020-08-07] MEDS: MIN OIL/DIMETHICON/COCONUT OIL 92 GM TUBE TOP PRN (20:29)
[2020-08-08] MEDS: SODIUM CHLORIDE FLUSH 0.9% 10 ML SYRINGE IVP SCH ×4 (00:06→23:38)
[2020-08-08 05:47] LABS: BASOPHILS # (AUTO) 0.1 10^3/uL (0.0-0.1); BASOPHILS % (AUTO) 0.4 %; EOSINOPHILS # (AUTO) 0.3 10^3/uL (0.0-0.7); EOSINOPHILS % (AUTO) 2.4 %; HGB - HEMOGLOBIN 9.6 g/dL (12.0-16.0); LYMPHOCYTES # (AUTO) 1.6 10^3/uL (1.5-3.5); LYMPHOCYTES % (AUTO) 14.5 %; MEAN CORPUSCULAR HEMOGLOBIN 29.6 pg (27.0-31.0); MEAN CORPUSCULAR VOLUME 95.7 fL (81.0-99.0); MEAN PLATELET VOLUME 9.6 fL (7.9-10.8); MONOCYTES # (AUTO) 1.1 10^3/uL (0.0-1.0); MONOCYTES % (AUTO) 10.2 %; NEUTROPHILS # (AUTO) 7.9 10^3/uL (1.5-6.6); PLT - PLATELET COUNT 300 10^3/uL (130-450); RED BLOOD COUNT 3.24 10^6/uL (4.20-5.40); RED CELL DISTRIBUTION WIDTH 12.8 % (12.0-15.0); WHITE BLOOD COUNT 11.2 x10^3/uL (4.8-10.8)
[2020-08-08 06:04] LABS: CALCIUM 8.7 mg/dL (8.5-10.3); CREATININE 0.9 mg/dL (0.4-1.0); CRP - C-REACTIVE PROTEIN 11.6 mg/dL (0-1.0); MAGNESIUM 2.4 mg/dL (1.7-2.8); PHOSPHORUS 2.9 mg/dL (2.5-4.6)
[2020-08-08] MEDS: LEVOTHYROXINE 75 MCG TABLET PO SCH (06:05)
[2020-08-08] MEDS ORDERED: POTASSIUM CHLORIDE 20 MEQ TABLET PO ONE (08:01)
[2020-08-08] MEDS: cefTRIAXone 1 GM in SODIUM CHLORIDE 0.9% MINIBAG 100 ML IV SCH (09:29)
[2020-08-08] MEDS: ENOXAPARIN 40 MG/0.4 ML SYRINGE SUBQ SCH (09:29)
[2020-08-08] MEDS: PRENATAL VITAMIN TABLET PO SCH (09:30)
[2020-08-08] MEDS: FUROSEMIDE 20 MG TABLET PO SCH ×3 (09:30→20:37)
[2020-08-08] MEDS: POTASSIUM CHLORIDE 20 MEQ TABLET PO SCH (10:16)
[2020-08-08] MEDS: polyethylene glycoL 3350 17 GM PACKET PO SCH (10:16)
[2020-08-08] MEDS: SENNA 8.6 MG TABLET PO SCH (10:16)
[2020-08-08] MEDS: DOCUSATE SODIUM 250 MG CAPSULE PO SCH (10:16)
[2020-08-08] MEDS: QUEtiapine 25 MG TABLET PO SCH ×2 (11:24→14:20)
[2020-08-08] MEDS: SACCHAROMYCES BOULARDII 250 MG CAPSULE PO SCH ×2 (11:24→16:55)
--- NOTE | 2020-08-08 14:41 | PROVIDER PROGRESS NOTE ---
Assessment/Plan - Problem List (1) Sepsis Assessment/Plan: (1) Sepsis Resolved. Patient hemodynamic is stable now, patient has no fever, WBC is trended down to 11.2, CRP is down to 12. Patient has no acute distress. 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 Clinically patient's lower extremity cellulitis is significantly improved, patient has no erythema or swelling now.We will switch to PO antibiotics. (3) Altered mental status probably resolved resolved. pt is stable on today. (4) Acute kidney injury Resolved resolved. (5) Chronic respiratory failure with hypoxia resolved. pt has 96% on room air. PT reported patient's O2 sat is drop when patient walk but return normal sats quickly, patient does not show respiratory distress in exertion. (6) Hypothyroidism stable (7) Cognitive impairment Conclusion/Plan: consult with social work, per PT, will hold home health PT and Aide (8) Normocytic Anemia pt's HGB is around 9.7/9.6, is stable. continue lab monitor - Current Meds Current Meds: Current Medications Generic Name Dose Route Start Last Admin Trade Name Freq PRN Reason Stop Dose Admin Acetaminophen 650 mg 08/05/20 17:06 08/07/20 18:26 Tylenol PO 650 mg Q4HR PRN Administration Pain 1 to 4 Docusate Sodium 250 - 500 mg 08/06/20 09:00 08/08/20 10:16 Colace 250mg Capsule PO Not Given DAILY [facility] Enoxaparin Sodium 40 mg 08/06/20 09:00 08/08/20 09:29 Lovenox SUBQ 40 mg DAILY [facility] Administration Furosemide 20 mg 08/06/20 21:00 08/07/20 20:29 Lasix PO 20 mg QPM [facility] Administration Furosemide 40 mg 08/07/20 08:00 08/08/20 11:24 Lasix PO 40 mg 0800,1200 [facility] Administration Levothyroxine Sodium 75 mcg 08/07/20 07:00 08/08/20 06:05 Synthroid PO 75 mcg QDAC [facility] Administration Mineral Oil 1 applic 08/07/20 18:07 08/07/20 20:29 Cavilon TOP 1 applic BID PRN Administration skin protectant Mirtazapine 15 mg 08/06/20 21:00 08/07/20 20:28 Remeron PO 15 mg QPM [facility] Administration Suboxone 8 Mg-2 Mg 1 each 08/06/20 17:00 08/08/20 10:47 Sl Film SL 1 each DAILY [facility] Administration Polyethylene Glycol 17 gm 08/06/20 09:00 08/08/20 10:16 Miralax PO Not Given DAILY [facility] Potassium Chloride 20 meq 08/07/20 08:00 08/08/20 10:16 K-Dur PO 20 meq DAILYWM [facility] Administration Multivit/Folic Acid/Iron 1 tab 08/07/20 11:00 08/08/20 09:30 Trinatal Rx 1 PO 1 tab DAILYWM [facility] Administration Quetiapine Fumarate 12.5 mg 08/07/20 10:00 08/08/20 14:20 Seroquel PO 12.5 mg 1000,1400 [facility] Administration Saccharomyces Boulardii 250 mg 08/08/20 10:57 08/08/20 11:24 Florastor PO 250 mg BIDWM [facility] Administration Senna 8.6 - 17.2 mg 08/06/20 09:00 08/08/20 10:16 Senokot PO Not Given DAILY [facility] Sodium Chloride 10 ml 08/06/20 01:00 08/08/20 10:17 Normal Saline Flush 0.9% IVP 10 ml 0100,0900,1700 [facility] Administration - Lab Result Fish Bone Diagrams: 08/08/20 05:24 08/08/20 05:24 - Additional Planning My Orders: My Active Orders 08/08/20 10:57 Saccharomyces Boulardii [Florastor] 250 mg PO BIDWM 08/08/20 17:00 cephALEXin [Keflex] 250 mg PO QID 08/09/20 05:00 CRP - C-REACTIVE PROTEIN [CHEM] DAILYLAB 08/10/20 05:00 CRP - C-REACTIVE PROTEIN [CHEM] DAILYLAB 08/11/20 05:00 CRP - C-REACTIVE PROTEIN [CHEM] DAILYLAB Subjective - Subjective Patient Reports: Feeling Better Nursing Reports: No Complaints Objective Vital Signs: Vital Signs - 24 hr 08/07/20 08/08/20 08/08/20 16:00 00:00 08:00 Temperature 36.5 C 36.5 C 36.3 C L Heart Rate [ 75 60 61 Brachial] Respiratory 20 24 16 Rate Blood Pressure 157/67 H 150/67 H 164/40 H [Right Brachial artery] O2 Saturation 95 94 96 Oxygen O2 Source [With Activity] Room air O2 Source Room air I&O (Last 24 Hrs): Intake and Output Totals x24h 08/06/20 08/07/20 08/08/20 23:59 23:59 23:59 Intake Total 4541.417 570 540 Balance 4541.417 570 540 General: Alert, No acute distress HEENT: Atraumatic Neck: Supple Lymphatic: no adenopathy Neuro: Alert, Non Focal Cardiovascular: Regular rate, Normal S1, Normal S2 Respiratory: Chest non-tender, No respiratory distress, Breath sounds nml Abdomen: Normal bowel sounds, Soft Extremities: Normal pulses Skin: No rashes - Results Results: Laboratory Results WBC 11.2 x10^3/uL (4.8-10.8) H 08/08/20 05:24 RBC 3.24 10^6/uL (4.20-5.40) L 08/08/20 05:24 Hgb 9.6 g/dL (12.0-16.0) L 08/08/20 05:24 Hct 31.0 % (37.0-47.0) L 08/08/20 05:24 MCV 95.7 fL (81.0-99.0) 08/08/20 05:24 MCH 29.6 pg (27.0-31.0) 08/08/20 05:24 MCHC 31.0 g/dL (32.0-36.0) L 08/08/20 05:24 RDW 12.8 % (12.0-15.0) 08/08/20 05:24 Plt Count 300 10^3/uL (130-450) 08/08/20 05:24 MPV 9.6 fL (7.9-10.8) 08/08/20 05:24 Neut # (Auto) 7.9 10^3/uL (1.5-6.6) H 08/08/20 05:24 Lymph # (Auto) 1.6 10^3/uL (1.5-3.5) 08/08/20 05:24 [place] # (Auto) 1.1 10^3/uL (0.0-1.0) H 08/08/20 05:24 Eos # (Auto) 0.3 10^3/uL (0.0-0.7) 08/08/20 05:24 Baso # (Auto) 0.1 10^3/uL (0.0-0.1) 08/08/20 05:24 Absolute Nucleated RBC 0.00 x10^3/uL 08/08/20 05:24 Total Counted 100 08/05/20 15:36 Band Neuts % (Manual) 9 % (0-10) 08/05/20 15:36 Abnorm Lymph % (Manual) 0 % 08/05/20 15:36 Nucleated RBC % 0.0 /100WBC 08/08/20 05:24 Neutrophils # (Manual) 31.0 10^3/uL (1.5-6.6) H 08/05/20 15:36 Lymphocytes # (Manual) 0.7 10^3/uL (1.5-3.5) L 08/05/20 15:36 Monocytes # (Manual) 2.0 10^3/uL (0.0-1.0) H 08/05/20 15:36 Eosinophils # (Manual) 0.3 10^3/uL (0-0.7) 08/05/20 15:36 Basophils # (Manual) 0.0 10^3/uL (0-0.1) 08/05/20 15:36 Differential Comment MANUAL DIFFERENTIAL 08/05/20 15:36 Manual Slide Review Indicated 08/06/20 05:50 Platelet Estimate NORMAL (130-450,000) (NORMAL) 08/06/20 05:50 Platelet Morphology NORMAL APPEARANCE (NORMAL) 08/06/20 05:50 RBC Morph Micro Appear NORMAL APPEARANCE (NORMAL) 08/06/20 05:50 Sodium 142 mmol/L (135-145) 08/08/20 05:24 Potassium 3.4 mmol/L (3.5-5.0) L 08/08/20 05:24 Chloride 104 mmol/L (101-111) 08/08/20 05:24 Carbon Dioxide 30 mmol/L (21-32) 08/08/20 05:24 Anion Gap 8.0 (6-13) 08/08/20 05:24 BUN 19 mg/dL (6-20) 08/08/20 05:24 Creatinine 0.9 mg/dL (0.4-1.0) 08/08/20 05:24 Estimated GFR (MDRD) 59 (>89) L 08/08/20 05:24 Glucose 102 mg/dL (70-100) H 08/08/20 05:24 Lactic Acid 1.7 mmol/L (0.5-2.2) 08/05/20 16:30 Calcium 8.7 mg/dL (8.5-10.3) 08/08/20 05:24 Phosphorus 2.9 mg/dL (2.5-4.6) 08/08/20 05:24 Magnesium 2.4 mg/dL (1.7-2.8) 08/08/20 05:24 Total Bilirubin 0.6 mg/dL (0.2-1.0) 08/05/20 15:36 AST 25 IU/L (10-42) 08/05/20 15:36 ALT 18 IU/L (10-60) 08/05/20 15:36 Alkaline Phosphatase 62 IU/L (42-121) 08/05/20 15:36 C-Reactive Protein 11.6 mg/dL (0-1.0) H 08/08/20 05:24 Total Protein 7.6 g/dL (6.7-8.2) 08/05/20 15:36 Albumin 3.3 g/dL (3.2-5.5) 08/05/20 15:36 Globulin 4.3 g/dL (2.1-4.2) H 08/05/20 15:36 Albumin/Globulin Ratio 0.8 (1.0-2.2) L 08/05/20 15:36 Lipase 29 U/L (22-51) 08/05/20 15:36 TSH 1.28 uIU/mL (0.34-5.60) 08/05/20 15:36 Urine Color YELLOW 08/05/20 16:40 Urine Clarity HAZY (CLEAR) 08/05/20 16:40 Urine pH 6.0 PH (5.0-7.5) 08/05/20 16:40 Ur Specific [place] 1.015 (1.002-1.030) 08/05/20 16:40 Urine Protein TRACE mg/dL (NEGATIVE) 08/05/20 16:40 Urine Glucose (UA) NEGATIVE mg/dL (NEGATIVE) 08/05/20 16:40 Urine Ketones NEGATIVE mg/dL (NEGATIVE) 08/05/20 16:40 Urine Occult Blood TRACE-LYSE (NEGATIVE) 08/05/20 16:40 Urine Nitrite NEGATIVE (NEGATIVE) 08/05/20 16:40 Urine Bilirubin NEGATIVE (NEGATIVE) 08/05/20 16:40 Urine Urobilinogen 0.2 (NORMAL) E.U./dL (NORMAL) 08/05/20 16:40 Ur Leukocyte Esterase TRACE (NEGATIVE) H 08/05/20 16:40 Urine RBC 0-5 /HPF (0-5) 08/05/20 16:40 Urine WBC 0-3 /HPF (0-5) 08/05/20 16:40 Ur Squamous Epith Cells NONE SEEN (<= Few) 08/05/20 16:40 Urine Bacteria None Seen /HPF (None Seen) 08/05/20 16:40 Ur Microscopic Review INDICATED 08/05/20 16:40 Urine Culture Comments INDICATED 08/05/20 16:40 Nasal Adenovirus (PCR) NOT DETECTED 08/05/20 16:38 Nasal B. parapertussis DNA (PCR) NOT DETECTED 08/05/20 16:38 Nasal Coronavir 229E PCR NOT DETECTED 08/05/20 16:38 Nasal Coronavir HKU1 PCR NOT DETECTED 08/05/20 16:38 Nasal Coronavir NL63 PCR NOT DETECTED 08/05/20 16:38 Nasal Coronavir OC43 PCR NOT DETECTED 08/05/20 16:38 Nasal Enterovir/Rhinovir PCR NOT DETECTED 08/05/20 16:38 Nasal Influenza B PCR NOT DETECTED 08/05/20 16:38 Nasal Influenza A PCR NOT DETECTED 08/05/20 16:38 Nasal Parainfluen 1 PCR NOT DETECTED 08/05/20 16:38 Nasal Parainfluen 2 PCR NOT DETECTED 08/05/20 16:38 Nasal Parainfluen 3 PCR NOT DETECTED 08/05/20 16:38 Nasal Parainfluen 4 PCR NOT DETECTED 08/05/20 16:38 Nasal RSV (PCR) NOT DETECTED 08/05/20 16:38 Nasal B.pertussis DNA PCR NOT DETECTED 08/05/20 16:38 Nasal C.pneumoniae (PCR) NOT DETECTED 08/05/20 16:38 Qasim Human Metapneumo PCR NOT DETECTED 08/05/20 16:38 Nasal M.pneumoniae (PCR) NOT DETECTED 08/05/20 16:38 Nasal SARS-CoV-2 (PCR) NOT DETECTED 08/05/20 16:38 Stl Occult Blood (IFOB) NEGATIVE (NEGATIVE) 08/07/20 12:00 Sepsis Event Note (H) - Evaluation Current Stage of Sepsis: Sepsis Possible source of Sepsis: positive: Skin/soft tissue - Sepsis Criteria Sepsis Criteria: WBC count greater than 12,000 or less than 4000, 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 (unrelated to primary neuro pathology) ABX Reporting Has patient been on IV antibiotics over the past 48 hours?: Yes Current Medications - Current Medications Current Medications: Active Medications Acetaminophen (Tylenol) 650 mg PO Q4HR PRN PRN Reason: Pain 1 to 4 Last Admin: 08/07/20 18:26 Dose: 650 mg Documented by: Cephalexin (Keflex) 250 mg PO QID [facility] Docusate Sodium (Colace 250mg Capsule) 250 - 500 mg PO DAILY [facility] Last Admin: 08/08/20 10:16 Dose: Not Given Documented by: Enoxaparin Sodium (Lovenox) 40 mg SUBQ DAILY [facility] Last Admin: 08/08/20 09:29 Dose: 40 mg Documented by: Furosemide (Lasix) 20 mg PO QPM [facility] Last Admin: 08/07/20 20:29 Dose: 20 mg Documented by: Furosemide (Lasix) 40 mg PO 0800,1200 [facility] Last Admin: 08/08/20 11:24 Dose: 40 mg Documented by: Levothyroxine Sodium (Synthroid) 75 mcg PO QDAC [facility] Last Admin: 08/08/20 06:05 Dose: 75 mcg Documented by: Mineral Oil (Cavilon) 1 applic TOP BID PRN PRN Reason: skin protectant Last Admin: 08/07/20 20:29 Dose: 1 applic Documented by: Mirtazapine (Remeron) 15 mg PO QPM [facility] Last Admin: 08/07/20 20:28 Dose: 15 mg Documented by: Ondansetron HCl (Zofran Odt) 4 mg TL Q6HR PRN PRN Reason: Nausea / Vomiting Ondansetron HCl (Zofran Inj) 4 mg IVP Q6HR PRN PRN Reason: Nausea / Vomiting Oxycodone HCl (Roxicodone) 5 mg PO Q4HR PRN PRN Reason: Pain 5 to 7 Suboxone 8 Mg-2 Mg (Sl Film) 1 each SL DAILY [facility] Last Admin: 08/08/20 10:47 Dose: 1 each Documented by: Polyethylene Glycol (Miralax) 17 gm PO DAILY [facility] Last Admin: 08/08/20 10:16 Dose: Not Given Documented by: Potassium Chloride (K-Dur) 20 meq PO DAILYWM [facility] Last Admin: 08/08/20 10:16 Dose: 20 meq Documented by: Multivit/Folic Acid/Iron (Trinatal Rx 1) 1 tab PO DAILYWM [facility] Last Admin: 08/08/20 09:30 Dose: 1 tab Documented by: Quetiapine Fumarate (Seroquel) 12.5 mg PO 1000,1400 [facility] Last Admin: 08/08/20 14:20 Dose: 12.5 mg Documented by: Saccharomyces Boulardii (Florastor) 250 mg PO BIDWM [facility] Last Admin: 08/08/20 11:24 Dose: 250 mg Documented by: Senna (Senokot) 8.6 - 17.2 mg PO DAILY [facility] Last Admin: 08/08/20 10:16 Dose: Not Given Documented by: Sodium Chloride (Normal Saline Flush 0.9%) 10 ml IVP PRN PRN PRN Reason: NEEDED PER PROVIDER ORDERS Sodium Chloride (Normal Saline Flush 0.9%) 10 ml IVP 0100,0900,1700 [facility] Last Admin: 08/08/20 10:17 Dose: 10 ml Documented by: Buprenorphine HCl/Naloxone HCl [Suboxone 8 mg-2 mg Sl Film] 1 film SL DAILY 12/04/16 Furosemide [Lasix] 40 mg PO 0800,1200 12/04/16 Mirtazapine 15 mg PO QPM 12/04/16 Potassium Chloride 20 meq PO DAILYWM 12/05/16 Quetiapine Fumarate 12.5 mg PO 1000,1400 12/30/16 Spironolactone 25 mg PO DAILY 10/27/19 Furosemide 20 mg PO QPM 10/28/19 Levothyroxine [Synthroid] 75 mcg PO QDAC 08/06/20 Omeprazole Magnesium 20 mg PO DAILY 08/06/20
[2020-08-08] MEDS: MIN OIL/DIMETHICON/COCONUT OIL 92 GM TUBE TOP PRN (16:16)
[2020-08-08] MEDS: cephALEXin 250 MG CAPSULE PO SCH ×2 (16:55→20:37)
[2020-08-08] MEDS: MIRTAZAPINE 15 MG TABLET PO SCH (20:37)
[2020-08-09 05:16] LABS: BASOPHILS % (AUTO) 0.6 %; EOSINOPHILS % (AUTO) 2.7 %; HGB - HEMOGLOBIN 9.9 g/dL (12.0-16.0); LYMPHOCYTES % (AUTO) 19.8 %; MEAN CORPUSCULAR HEMOGLOBIN 29.9 pg (27.0-31.0); MEAN CORPUSCULAR HGB CONC 31.1 g/dL (32.0-36.0); MEAN CORPUSCULAR VOLUME 96.1 fL (81.0-99.0); MEAN PLATELET VOLUME 11.6 fL (7.9-10.8); MONOCYTES % (AUTO) 9.9 %; NEUTROPHILS % (AUTO) 60.8 %; PLT - PLATELET COUNT 229 10^3/uL (130-450); RED BLOOD COUNT 3.31 10^6/uL (4.20-5.40)
[2020-08-09 05:29] LABS: ABNORMAL LYMPHS % (MANUAL) 0 %; BAND NEUTROPHILS % (MANUAL) 0 %
[2020-08-09 05:33] LABS: CALCIUM 8.6 mg/dL (8.5-10.3); CRP - C-REACTIVE PROTEIN 6.6 mg/dL (0-1.0); MAGNESIUM 2.3 mg/dL (1.7-2.8); PHOSPHORUS 2.8 mg/dL (2.5-4.6)
[2020-08-09 05:42] LABS: DIFFERENTIAL COMMENT MANUAL DIFFERENTIAL; EOSINOPHILS # (MANUAL) 0.5 10^3/uL (0-0.7); LYMPHOCYTES # (MANUAL) 2.8 10^3/uL (1.5-3.5); LYMPHOCYTES % (MANUAL) 23 %; METAMYELOCYTES % (MANUAL) 1 %; MONOCYTES # (MANUAL) 0.6 10^3/uL (0.0-1.0); MYELOCYTES % (MANUAL) 2 %; PLATELET ESTIMATE, MANUAL NORMAL (130-450,000) (NORMAL); RBC MORPHOLOGY (MULTIPLE) NORMAL APPEARANCE (NORMAL)
[2020-08-09] MEDS: LEVOTHYROXINE 75 MCG TABLET PO SCH (05:53)
[2020-08-09] MEDS ORDERED: POTASSIUM CHLORIDE 20 MEQ TABLET PO ONE (07:29)
[2020-08-09] MEDS: FUROSEMIDE 20 MG TABLET PO SCH ×2 (07:49→12:06)
[2020-08-09] MEDS: PRENATAL VITAMIN TABLET PO SCH (07:50)
[2020-08-09] MEDS: SACCHAROMYCES BOULARDII 250 MG CAPSULE PO SCH (07:50)
[2020-08-09] MEDS: POTASSIUM CHLORIDE 20 MEQ TABLET PO SCH (07:50)
[2020-08-09] MEDS: ENOXAPARIN 40 MG/0.4 ML SYRINGE SUBQ SCH (09:15)
[2020-08-09] MEDS: SODIUM CHLORIDE FLUSH 0.9% 10 ML SYRINGE IVP SCH (09:15)
[2020-08-09] MEDS: polyethylene glycoL 3350 17 GM PACKET PO SCH (09:18)
[2020-08-09] MEDS: SENNA 8.6 MG TABLET PO SCH (09:18)
[2020-08-09] MEDS: DOCUSATE SODIUM 250 MG CAPSULE PO SCH (09:18)
[2020-08-09] MEDS: QUEtiapine 25 MG TABLET PO SCH ×2 (10:24→14:12)
[2020-08-09] MEDS ORDERED: amLODIPine 5 MG TABLET PO SCH (12:00)
--- NOTE | 2020-08-09 14:58 | Discharge Plan ---
Discharge Plan Problem Reviewed?: Yes Disposition: Home, Self Care Condition: Stable Prescriptions: cefUROXime axetiL [Ceftin] 500 mg PO BID 5 Days #20 tablet Saccharomyces Boulardii [Florastor] 250 mg PO DAILY #5 capsule Instruction Topics: Cefuroxime tablets, Cellulitis Ch, ED Infec Skin Cellulitis Health Concerns: cellulitis Plan of Treatment: you were found to have right lower extremity cellulitis. You were treated with antibiotics in the hospital. You are prescribed antibiotics Ceftin to finish the treatment course. Care Goals: stabilization and improvement/healing of your medical conditions Assessment: discussed the care plan with you and your son, you understood and agreed. Additional Instructions or Follow Up instructions: You may followup with your PCP in one to two weeks. Should your symptoms return or worsen, you may present ER or call 911 for help. No Smoking: If you smoke, Please STOP! Call for help. Follow-up with: Valentina Madera ARNP [Primary Care Provider] -
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
[2020-08-09 16:47] VITALS: BP 142/60
== END 2020-08-09 16:35 | disposition home or self-care (01) | DRG 872 ==
LOC: EDUNIT# → ED 14:52 → MS2 17:06
PROVIDERS: ADMIT Specialist; ATTEND Nurse Practitioner Gerontology
DX: A41.9 Sepsis, unspecified organism (principal); L03.115 Cellulitis of right lower limb; N17.9 Acute kidney failure, unspecified; I50.32 Chronic diastolic (congestive) heart failure; G31.84 Mild cognitive impairment of uncertain or unknown etiology; R65.20 Severe sepsis without septic shock; D64.9 Anemia, unspecified; E03.9 Hypothyroidism, unspecified; E78.00 Pure hypercholesterolemia, unspecified; R32 Unspecified urinary incontinence; F41.9 Anxiety disorder, unspecified; M81.0 Age-related osteoporosis without current pathological fracture; M40.209 Unspecified kyphosis, site unspecified; G89.29 Other chronic pain; M54.9 Dorsalgia, unspecified; Z74.09 Other reduced mobility; Z66 Do not resuscitate; Z20.828 Contact with and (suspected) exposure to other viral communicable diseases; Z79.899 Other long term (current) drug therapy; Z87.891 Personal history of nicotine dependence; Z87.01 Personal history of pneumonia (recurrent)
CPT/HCPCS: 36415; 51701; 71045; 80048; 80053; 81001; 82274; 83605; 83690; 83735; 84100; 84443; 85025; 86140; 87040; 87086; 87631; 93970; 96374; 97116; 97161; 99283; 99285; A6250; A9270; J1650; J3370; J7120; Q0162; U0004; 0202U; 81003

== ENCOUNTER 2020-09-24 10:16 | Emergency (ER) | payer MEDICARE, OTHER ==
[2020-09-24 11:22] LABS: BILIRUBIN,URINE NEGATIVE (NEGATIVE); CLARITY,URINE CLEAR (CLEAR); GLUCOSE, URINE (UA) NEGATIVE (NEGATIVE); KETONES,URINE (UA) NEGATIVE (NEGATIVE); LEUKOCYTE ESTERASE, URINE NEGATIVE (NEGATIVE); NITRITE,URINE NEGATIVE (NEGATIVE); OCCULT BLOOD,URINE NEGATIVE (NEGATIVE); PH,URINE 5.5 PH (5.0-7.5); PROTEIN,URINE NEGATIVE (NEGATIVE); UROBILINOGEN,URINE 0.2 (NORMAL) E.U./dL (NORMAL)
[2020-09-24 11:23] LABS: BASOPHILS % (AUTO) 0.4 %; EOSINOPHILS # (AUTO) 0.1 10^3/uL (0.0-0.7); EOSINOPHILS % (AUTO) 1.3 %; HGB - HEMOGLOBIN 11.5 g/dL (12.0-16.0); LYMPHOCYTES # (AUTO) 1.7 10^3/uL (1.5-3.5); MEAN CORPUSCULAR HEMOGLOBIN 29.9 pg (27.0-31.0); MEAN CORPUSCULAR HGB CONC 31.2 g/dL (32.0-36.0); MEAN CORPUSCULAR VOLUME 95.8 fL (81.0-99.0); MEAN PLATELET VOLUME 9.7 fL (7.9-10.8); MONOCYTES # (AUTO) 0.7 10^3/uL (0.0-1.0); MONOCYTES % (AUTO) 7.5 %; NEUTROPHILS # (AUTO) 6.8 10^3/uL (1.5-6.6); NEUTROPHILS % (AUTO) 71.9 %; PLT - PLATELET COUNT 240 10^3/uL (130-450); RED BLOOD COUNT 3.85 10^6/uL (4.20-5.40); RED CELL DISTRIBUTION WIDTH 12.9 % (12.0-15.0); WHITE BLOOD COUNT 9.5 x10^3/uL (4.8-10.8)
[2020-09-24 11:26] LABS: ALBUMIN 3.6 g/dL (3.2-5.5); ALBUMIN/GLOBULIN RATIO 1.1 (1.0-2.2); BILIRUBIN,TOTAL 0.5 mg/dL (0.2-1.0); CALCIUM 9.3 mg/dL (8.5-10.3); CREATININE 1.2 mg/dL (0.4-1.0); TOTAL PROTEIN 6.9 g/dL (6.7-8.2)
[2020-09-24 11:45] LABS: AMORPHOUS SEDIMENT,UR Rare /LPF; CASTS, URINE 0-2 Hyaline Casts /LPF; RBC,URINE 0-5 /HPF (0-5)
[2020-09-24 11:49] LABS: SQUAMOUS EPITHELIAL CELL,UR NONE SEEN (<= Few)
[2020-09-24 12:05] LABS: BACTERIA,URINE None Seen /HPF (None Seen); OVAL FAT BODIES,URINE None Seen /HPF
--- NOTE | 2020-09-24 14:17 | CT Report ---
PROCEDURE: Abdomen/Pelvis WO INDICATIONS: hematuria, placido TECHNIQUE: Noncontrast 5 mm thick sections acquired from the diaphragms to the symphysis. 5 mm coronal and sagi ttal reformats were then performed. For radiation dose reduction, the following was used: automated exposure control, adjustment of mA and/or kV according to patient size. COMPARISON: 05/08/2012, report only FINDINGS: Image quality: Excellent. ABDOMEN: Lung bases: Lung bases are clear. Subpleural fibrotic changes can be seen. Heart size is normal. T he right hemidiaphragm is high riding. Solid organs: Liver and spleen are normal in size. Gallbladder demonstrates a gallstone within its lumen, as on series 3 image 34 Pancreas is normal in contours. No adrenal nodules. The kidneys are atrophic. No stones are seen. No hydronephrosis can be seen. Peritoneum and bowel: Unenhanced bowel loops demonstrate normal wall thickness and caliber. No free fluid or air. The hepatic flexure is high riding. Diverticulosis can be seen, without cal finding s of active diverticulitis. Nodes and vessels: No retroperitoneal or mesenteric adenopathy by size criteria. Aorta and inferior vena cava are normal in caliber. Dense atherosclerotic calcification is seen. Miscellaneous: No ventral hernias. PELVIS: Genitourinary: Bladder wall thickness is normal. The uterus demonstrates an unremarkable appearance for age. No adnexal masses are seen. Miscellaneous: No inguinal hernias or adenopathy. Bones: No suspicious bony lesions. There is a remote appearing L1 anterior wedge deformity, with 50 % loss of height anteriorly. No acute appearing vertebral body compression fractures. Age-appropriate degenerative changes are seen. There is accentuated thoracic kyphosis. This patient has transitio nal anatomy. For the purposes of this examination, the level with the left-sided vestigial rib is con sidered to be T12. By this numbering scheme, the L5 level is transitional and highly sacralized. IMPRESSION: No stones or hydronephrosis can be seen. Atrophic appearing kidneys. Incidental note is made of: Subpleural fibrotic change High riding right hemidiaphragm High riding hepatic flexure Gallstone Dense atherosclerotic calcification Diverticulosis is seen, yet without findings of active diverticulitis. Chronic appearing L1 anterior wedge deformity Transitional lumbar anatomy, with a highly sacralized L5 Reviewed by: Nikolai Ceja MD on 09/24/2020 1:16 PM AMAYA Approved by: Nikolai Ceja MD on 09/24/2020 1:16 PM IN Station ID: [id number]
[2020-09-24] MEDS ORDERED: LACTATED RINGERS 500 ML IV STA (14:39)
--- NOTE | 2020-09-24 15:19 | ED Physician Documentation ---
History of Present Illness - Stated complaint Stated Complaint: CONFUSION - Chief complaint Chief Complaint: Neuro - History obtained from History obtained from: Patient, Caregiver - Additonal information Additional information: 89-year-old woman with past medical history of dementia, high blood pressure, CKD, Presents with gradual onset worsening confusion since yesterday, reported by caregiver. Per caregiver, she tried to put her shirt on her legs this morning and was acting not as sharp as usual. She also complained of dysuria at one point. Otherwise she had been asymptomatic aside from some mild leg swelling the caregiver noted over the past couple days. patient is AOX2 (person, time) and AOX3 with some prompting. 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: Other : Incontinence, Renal insuffiency Psych: Anxiety, Other Musculoskeletal: Osteoporosis, Chronic back pain Derm: Other - Past Surgical History Past Surgical History: No HEENT: Tonsil/Adenoidectomy - Present Medications Home Medications: Ambulatory Orders Medication Instructions Recorded Confirmed Buprenorphine HCl/Naloxone HCl 1 film SL DAILY 12/04/16 09/24/20 [Suboxone 8 mg-2 mg Sl Film] Furosemide [Lasix] 40 mg PO 0800,1200 12/04/16 09/24/20 Mirtazapine 15 mg PO QPM 12/04/16 09/24/20 Potassium Chloride 10 meq PO DAILYWM 12/05/16 09/24/20 Quetiapine Fumarate 12.5 mg PO 1000,1400 12/30/16 09/24/20 Spironolactone 25 mg PO DAILY 10/27/19 09/24/20 Furosemide 20 mg PO QPM 10/28/19 09/24/20 Levothyroxine [Synthroid] 75 mcg PO QDAC 08/06/20 09/24/20 Omeprazole Magnesium 20 mg PO DAILY 08/06/20 08/06/20 Saccharomyces Boulardii [Florastor] 250 mg PO DAILY #5 capsule 08/09/20 - Allergies Allergies/Adverse Reactions: Allergies Allergy/AdvReac Type Severity Reaction Status Date / Time amoxicillin [Amoxicillin] AdvReac Intermediate Diarrhea Verified 09/24/20 10:34 - Social History Does the pt smoke?: No Smoking Status: Never smoker Does the pt drink ETOH?: No Does the pt have substance abuse?: No - Immunizations Immunizations are current?: No Immunizations: TDAP >10years/unknown - POLST Patient has POLST: Yes POLST Status: Full Code PD ED PE NORMAL - Vitals Vital signs reviewed: Yes - General General: Alert and oriented X 3 - HEENT HEENT: Atraumatic, PERRL, EOMI, Moist mucous membranes - Neck Neck: Supple, no meningeal sign - Cardiac Cardiac: RRR - Respiratory Respiratory: No respiratory distress, Clear bilaterally - Abdomen Abdomen: Other (Diffuse discomfort to palpation) - Female Female : Deferred - Rectal Rectal: Deferred - Back Back: No CVA TTP - Derm Derm: Normal color, Warm and dry - Extremities Extremities: Other (1+ bilateral pitting edema) - Neuro Neuro: Alert and oriented X 3, digital asset coordinator 2-12 intact, No motor deficit, No sensory deficit, Normal speech - Psych Psych: Normal mood, Normal affect Results - Vitals Vitals: Vital Signs - 24 hr 09/24/20 09/24/20 09/24/20 10:30 10:39 12:40 Temperature 37.0 C 37.1 C Heart Rate 89 66 56 L Respiratory 17 14 22 Rate Blood Pressure 178/89 H 179/67 H 152/126 H O2 Saturation 95 94 96 09/24/20 13:56 Temperature 37.3 C Heart Rate 64 Respiratory 22 Rate Blood Pressure 163/71 H O2 Saturation 96 Oxygen O2 Source [With Activity] Room air O2 Source Room air - Labs Labs: Laboratory Tests 09/24/20 09/24/20 09/24/20 11:05 11:05 11:13 WBC 9.5 RBC 3.85 L Hgb 11.5 L Hct 36.9 L MCV 95.8 MCH 29.9 MCHC 31.2 L RDW 12.9 Plt Count 240 MPV 9.7 Neut # (Auto) 6.8 H Lymph # (Auto) 1.7 [place] # (Auto) 0.7 Eos # (Auto) 0.1 Baso # (Auto) 0.0 Absolute Nucleated RBC 0.00 Nucleated RBC % 0.0 Sodium 139 Potassium 3.9 Chloride 95 L Carbon Dioxide 32 Anion Gap 12.0 BUN 24 H Creatinine 1.2 H Estimated GFR (MDRD) 42 L Glucose 128 H Calcium 9.3 Total Bilirubin 0.5 AST 25 ALT 15 Alkaline Phosphatase 48 Total Protein 6.9 Albumin 3.6 Globulin 3.3 Albumin/Globulin Ratio 1.1 Lipase 39 Urine Color YELLOW Urine Clarity CLEAR Urine pH 5.5 Ur Specific [place] 1.025 Urine Protein NEGATIVE Urine Glucose (UA) NEGATIVE Urine Ketones NEGATIVE Urine Occult Blood NEGATIVE Urine Nitrite NEGATIVE Urine Bilirubin NEGATIVE Urine Urobilinogen 0.2 (NORMAL) Ur Leukocyte Esterase NEGATIVE Urine RBC 0-5 Urine WBC 0-3 Ur Squamous Epith Cells NONE SEEN Amorphous Sediment Rare Urine Bacteria None Seen Urine Casts 0-2 Hyaline Casts Ur Oval Fat Bodies None Seen Urine Culture Comments NOT INDICATED PD MEDICAL DECISION MAKING - ED course ED course: 89-year-old woman presented to the ED with confusion and leg swelling over the past couple days, reported by her caregiver that she was trying to put her shirt on her legs this morning and seemed a little bit less sharp than usual. Patient also complained at one point of dysuria however her urinalysis and all of her tests today were unimpressive. She did have some mild HYACINTH and so her caregiver was counseled to try to get her to drink lots of fluids. The patient herself is AO x3 and has no complaints at this time, requesting to go home. return precautions given. Departure - Departure Disposition: 01 Home, Self Care Clinical Impression: Confusion, HYACINTH (acute kidney injury), Leg swelling Condition: Good Instructions: ED Confusion Comments: Ms. Wiley was seen in the emergency department today for confusion and leg swelling, found to have no infection on urine studies, but with mild kidney injury on her bloodwork. She should stay well hydrated and drink lots of water. We also gave her a small amount of fluids through her iv today (500mL). Because she was having some abdominal pain, a ct was done that showed no kidney stones or other acute emergent issues. there were some incidental findings (enclosed) that she should follow up with her primary doctor about. now that she is feeling better and her confusion appears to have resolved, she can go home and follow up as an outpatient. please return to the ed for any new or worsening symptoms or other concerns.
[2020-09-24 15:34] VITALS: BP 173/81
== END 2020-09-24 16:02 | disposition home or self-care (01) ==
LOC: ED 10:16
DX: R41.0 Disorientation, unspecified (principal); F03.90 Unspecified dementia, unspecified severity, without behavioral disturbance, psychotic disturbance, mood disturbance, and anxiety; N17.9 Acute kidney failure, unspecified; R10.84 Generalized abdominal pain; R60.0 Localized edema; I13.0 Hypertensive heart and chronic kidney disease with heart failure and stage 1 through stage 4 chronic kidney disease, or unspecified chronic kidney disease; I50.9 Heart failure, unspecified; N18.9 Chronic kidney disease, unspecified
CPT/HCPCS: 36415; 51701; 74176; 80053; 81001; 83690; 85025; 96360; 99284; J7120; 87086